=== PATIENT | male | born 1990 | race Caucasian/White ===

== ENCOUNTER 2020-11-30 12:38 | Outpatient (REF) | payer OTHER, SELFPAY ==
[2020-11-30 14:02] LABS: Hematocrit 47.7 % (42-52); Hemoglobin 16.4 g/dl (14.0-18.0); Mean Corpuscular HGB Conc 34.4 g/dl (31.0-36.0); Mean Corpuscular Hemoglobin 29.6 pg (27.0-33.0); Mean Corpuscular Volume 86.1 fL (80-98); Mean Platelet Volume 9.8 fL (9.4-12.4); Platelet Count 223 X10*3/uL (160-400); Red Blood Count 5.54 X10*6/uL (4.60-5.80)
[2020-11-30 14:39] LABS: Alanine Aminotransferase 27 U/L (0-40); Albumin Level 4.9 g/dL (3.5-5.0); Alkaline Phosphatase 67 U/L (39-117); Anion Gap 16 (12-20); Aspartate Amino Transferase 25 U/L (5-37); Bilirubin Total 0.7 mg/dL (0.0-1.0); Blood Urea Nitrogen 15 mg/dL (9-16); Calcium 9.7 mg/dL (8.4-10.2); Carbon Dioxide 26 mmol/L (22-29); Chloride 104 mmol/L (96-108); Estimated Glomerular Filt Rate > 60; Glucose Fasting 101 mg/dL (60-99); Potassium 3.8 mmol/l (3.3-5.1); Sodium 142 mmol/L (135-145); Total Protein 7.5 g/dL (6.5-8.0)
[2020-11-30 14:59] LABS: TSH reflex Free T4 1.92 mIU/mL (0.32-4.0)
== END 2020-11-30 12:39 | disposition home or self-care (01) ==
LOC: HO.10HDL 12:38
PROVIDERS: Visit Provider Physician Assistant
DX: I10 Essential (primary) hypertension (principal); R59.0 Localized enlarged lymph nodes; Z13.1 Encounter for screening for diabetes mellitus; Z13.29 Encounter for screening for other suspected endocrine disorder
CPT/HCPCS: 36415; 80053; 84443; 85027

== ENCOUNTER 2020-11-30 12:48 | Outpatient (REF) | payer OTHER, SELFPAY ==
--- NOTE | 2020-11-30 12:52 | US_ITS ---
EXAMINATION: US SOFT TISSUE OF THE NECK CLINICAL INFORMATION: Localized enlarged lymph nodes. COMPARISON: Ultrasound soft tissue head/neck thyroid and ultrasound external soft tissues nonvascular dated 12/09/2016 TECHNIQUE: Linear transducer grayscale and color Doppler examination of the left mandibular area. FINDINGS: There are 2 lymph nodes in the left submandibular region measuring 1.4 x 0.6 x 1.6 cm and 1.1 x 0.6 x 0.8 cm. These demonstrate normal ultrasound morphology and flow. US/US soft tiss head and/or neck IMPRESSION: 2 cervical lymph nodes adjacent to the left submandibular gland. The larger lymph node is slightly enlarged. Both lymph nodes demonstrate normal ultrasound morphology and flow. Management should be determined on a clinical basis.
== END 2020-11-30 12:49 | disposition home or self-care (01) ==
LOC: HO.US 12:48
PROVIDERS: PCP Physician Assistant; Visit Provider Physician Assistant
DX: R59.0 Localized enlarged lymph nodes (principal); Z13.1 Encounter for screening for diabetes mellitus; Z13.29 Encounter for screening for other suspected endocrine disorder
CPT/HCPCS: 76536

== ENCOUNTER 2021-12-17 10:42 | Outpatient (REF) | payer OTHER, SELFPAY ==
[2021-12-17 13:53] LABS: MANUAL DIFF FLAG NO
[2021-12-17 14:00] LABS: Basophils Percent Auto 0.6 % (0-2); Eosinophils Absolute Auto 0.1 X10*3/uL (0.0-0.4); Eosinophils Percent Auto 3.7 % (0-4); Hematocrit 45.5 % (42.0-52.0); Hemoglobin 15.8 g/dl (14.0-18.0); Imm Gran Abs Auto 0.01 X10*3/uL (0.00-0.03); Imm Gran Pct Auto 0.3 % (0.0-0.4); Lymphocytes Absolute Auto 1.3 X10*3/uL (1.2-4.9); Lymphocytes Percent Auto 39.6 % (20-40); Mean Corpuscular HGB Conc 34.7 g/dl (31.0-36.0); Mean Corpuscular Hemoglobin 29.8 pg (27.0-33.0); Mean Corpuscular Volume 85.7 fL (80.0-98.0); Mean Platelet Volume 9.4 fL (9.4-12.4); Monocytes Absolute Auto 0.3 X10*3/uL (0.1-1.2); Monocytes Percent Auto 9.1 % (2-11); Neutrophils Absolute Auto 1.5 x10*3/uL (2.0-8.3); Neutrophils Percent Auto 46.7 % (45-73); Platelet Count 240 X10*3/uL (160-400); Red Blood Count 5.31 X10*6/uL (4.60-5.80); Red Cell Distribution Width 11.8 % (11.0-16.0); White Blood Count 3.3 X10*3/uL (4.8-10.8)
[2021-12-17 14:23] LABS: Alanine Aminotransferase 21 U/L (0-40); Albumin Level 4.8 g/dL (3.5-5.0); Alkaline Phosphatase 70 U/L (39-117); Anion Gap 11 (12-20); Aspartate Amino Transferase 22 U/L (5-37); Bilirubin Total 0.7 mg/dL (0.0-1.0); Blood Urea Nitrogen 14 mg/dL (9-16); C Reactive Protein 0.25 mg/dL (< or = 0.50); Calcium 10.3 mg/dL (8.4-10.2); Carbon Dioxide 30 mmol/L (22-29); Chloride 103 mmol/L (96-108); Estimated Glomerular Filt Rate > 60; Glucose Random 109 mg/dL (60-115); Potassium 4.1 mmol/L (3.3-5.1); Sodium 140 mmol/L (135-145); Total Protein 7.5 g/dL (6.5-8.0)
[2021-12-17 14:36] LABS: Erythrocyte Sedimentation Rate 1 MM/HR (0-15)
[2021-12-17 14:46] LABS: TSH reflex Free T4 1.35 uIU/mL (0.32-4.0)
[2021-12-17 14:58] LABS: Folate 12.7 ng/mL (> or = 4.0); Vitamin B12 324 pg/mL (200-900)
[2021-12-19 22:01] LABS: Anti Nuclear Antibody Screen NEGATIVE (NEGATIVE)
== END 2021-12-17 10:43 | disposition home or self-care (01) ==
LOC: HO.10HDL 10:42
PROVIDERS: Visit Provider Nurse Practitioner Family
DX: Z13.29 Encounter for screening for other suspected endocrine disorder (principal); R10.9 Unspecified abdominal pain; N63.20 Unspecified lump in the left breast, unspecified quadrant
CPT/HCPCS: 36415; 80053; 82306; 82607; 82746; 84443; 85025; 85652; 86038; 86039; 86140

== ENCOUNTER 2021-12-23 08:31 | Outpatient (REF) | payer OTHER, SELFPAY ==
--- NOTE | ~2021-12-23 | MM_ITS ---
EXAMINATION: MM DIAGNOSTIC DIGITAL BREAST TOMOSYNTHESIS, BILATERAL US DIAGNOSTIC ULTRASOUND BREAST, LEFT CLINICAL INFORMATION: 31-year-old male with left retroareolar fullness. Family history breast cancer mother, paternal grandmother, paternal aunt. No prior breast imaging. COMPARISON: None (current study represents initial baseline exam). TECHNIQUE: Digital breast tomosynthesis is performed in both the craniocaudal and mediolateral oblique views along with computer-aided detection (CAD). Synthesized 2D images are generated from the tomosynthesis. Additional right MLO view is provided. Ultrasound left breast is targeted to the retroareolar and periareolar region. Grayscale imaging and color Doppler are performed without and with harmonics. FINDINGS: There are scattered areas of fibroglandular density (ACR BI-RADS breast composition Category b). There is mild bilateral subareolar gynecomastia type parenchymal pattern. There is no mass or architectural abnormality. No focal duct ectasia. No abnormal calcifications. No skin thickening or coarsening of the stromal markings. The axilla are unremarkable. Ultrasound left breast demonstrates trace gynecomastia beneath the nipple. There is no cystic or solid mass, architectural abnormality, or or focal duct ectasia. No skin thickening or edema tracking in soft tissue planes. Results are discussed with the patient at time of visit. MM/MM tomosynthesis diagnostic BI IMPRESSION: 1. Mild bilateral gynecomastia. No mammographic evidence of malignancy. 2. Unremarkable targeted left breast ultrasound. ASSESSMENT: BI-RADS 2: Benign RECOMMENDATION: Patient should be managed based on the clinical impression. If clinically indicated, further evaluation may be considered with surgical consult. Decision to proceed with biopsy should be based on clinical grounds and degree of clinical concern.
== END 2021-12-23 08:32 | disposition home or self-care (01) ==
LOC: HO.MAMMO 08:31
PROVIDERS: PCP Physician Assistant; Visit Provider Nurse Practitioner Family
DX: N63.21 Unspecified lump in the left breast, upper outer quadrant (principal)
CPT/HCPCS: 76642; 77062; 77066

== ENCOUNTER 2023-01-09 09:03 | Outpatient (REF) | payer OTHER, SELFPAY ==
[2023-01-09 11:01] LABS: Hematocrit 44.5 % (42.0-52.0); Hemoglobin 15.4 g/dl (14.0-18.0); Mean Corpuscular HGB Conc 34.6 g/dl (31.0-36.0); Mean Corpuscular Hemoglobin 30.2 pg (27.0-33.0); Mean Corpuscular Volume 87.3 fL (80.0-98.0); Mean Platelet Volume 9.5 fL (9.4-12.4); Platelet Count 246 X10*3/uL (160-400); Red Cell Distribution Width 11.9 % (11.0-16.0); White Blood Count 3.7 X10*3/uL (4.8-10.8)
[2023-01-09 11:55] LABS: Alanine Aminotransferase 29 U/L (0-40); Albumin Level 4.7 g/dL (3.5-5.0); Alkaline Phosphatase 81 U/L (39-117); Anion Gap 14 (12-20); Aspartate Amino Transferase 24 U/L (5-37); Bilirubin Total 0.4 mg/dL (0.0-1.0); Blood Urea Nitrogen 19 mg/dL (9-16); C Reactive Protein < 0.10 mg/dL (< or = 0.50); Calcium 9.8 mg/dL (8.4-10.2); Carbon Dioxide 27 mmol/L (22-29); Chloride 107 mmol/L (96-108); Estimated Glomerular Filt Rate > 60; Glucose Random 101 mg/dL (60-115); Sodium 143 mmol/L (135-145)
[2023-01-09 12:06] LABS: Folate 5.4 ng/mL (> or = 4.0); TSH reflex Free T4 1.36 uIU/mL (0.32-4.0); Vitamin B12 302 pg/mL (200-900)
[2023-01-10 13:54] LABS: Transglutaminase Ab IgG <1.0 U/mL; Transglutaminase IgA <1.0 U/mL
[2023-01-13 13:58] LABS: Vitamin D 25-OH, D2 <4 ng/mL; Vitamin D 25-OH, D3 27 ng/mL; Vitamin D 25-OH, Total 27 ng/mL (30-100)
== END 2023-01-09 09:04 | disposition home or self-care (01) ==
LOC: HO.LAB 09:03
PROVIDERS: PCP Physician Assistant; Visit Provider Nurse Practitioner Family
DX: R10.9 Unspecified abdominal pain (principal); R19.7 Diarrhea, unspecified; E55.9 Vitamin D deficiency, unspecified; K21.9 Gastro-esophageal reflux disease without esophagitis; K59.00 Constipation, unspecified; K20.90 Esophagitis, unspecified without bleeding; K58.9 Irritable bowel syndrome, unspecified; R14.0 Abdominal distension (gaseous)
CPT/HCPCS: 36415; 80053; 82306; 82607; 82746; 84443; 85027; 86003; 86140; 86364; 99202

== ENCOUNTER → 2023-03-15 08:42 | Outpatient (BNVA) | payer OTHER, SELFPAY | PROVIDERS: PCP Physician Assistant; Visit Provider Nurse Practitioner Family | DX: D72.819 Decreased white blood cell count, unspecified (principal); R14.0 Abdominal distension (gaseous); R79.89 Other specified abnormal findings of blood chemistry | CPT/HCPCS: 99212 ==

== ENCOUNTER 2023-04-21 14:46 | Outpatient (REF) | payer OTHER, SELFPAY ==
[2023-04-21 17:42] LABS: Erythrocyte Sedimentation Rate 2 MM/HR (0-15)
[2023-04-23 23:20] LABS: TS Negative Control Passed; TS Panel A 0; TS Panel B 0; TS Positive Control Passed; TSpotTB Negative (Negative)
[2023-04-24 08:23] LABS: Syphilis Screen Nonreactive (Nonreactive)
[2023-04-26 05:14] LABS: Toxoplasma IgG Antibody <7.20 IU/mL; Toxoplasma IgM Antibody <8.00 AU/mL
[2023-04-27 12:34] LABS: Immunoglobulin G Subclass 1 581 mg/dL (382-929); Immunoglobulin G Subclass 2 162 mg/dL (241-700); Immunoglobulin G Subclass 3 47 mg/dL (22-178); Immunoglobulin G Subclass 4 40.5 mg/dL (4-86); Immunoglobulin G Total 847 mg/dL (600-1640)
[2023-04-27 21:19] LABS: Strongyloides Antibody IgG NEGATIVE
[2023-04-29 02:28] LABS: Schistosoma IgG Antibody <1.00
== END 2023-04-21 14:47 | disposition home or self-care (01) ==
LOC: HO.LAB 14:46
PROVIDERS: PCP Physician Assistant; Visit Provider Internal Medicine
DX: Z11.1 Encounter for screening for respiratory tuberculosis (principal); R05.9 Cough, unspecified; D72.819 Decreased white blood cell count, unspecified; L50.8 Other urticaria; R14.0 Abdominal distension (gaseous)
CPT/HCPCS: 36415; 82784; 85652; 86403; 86481; 86682; 86777; 86778; 86780; 99202

== ENCOUNTER 2023-06-14 08:55 | Outpatient (AMB) | payer OTHER, SELFPAY ==
[2023-06-14 09:00] VITALS: BP 145/90; PULSE 79; BMI 28.3
--- NOTE | 2023-06-14 09:00 | MHC.OFFVIS ---
Intake Vital Signs 06/14/23 09:00 Height 6 ft 1 in Weight 214 lb 4.629 oz BMI 28.3 BP 145/90 H Blood Pressure Location Lt brachial Position Sitting Pulse 79 Intake Visit Reasons: 3 month follow up Intake Note: Bob presents in office as a est.patient for 3month f/u for abdominal bloating PT CC: pt reports having abdominal bloating , constipation, pt denies any other GI Issues Auricular Acupuncturist Required: No Accompanied by: Self / Same As Patient Allergies azithromycin [AZITHROMYCIN] Allergy (Unknown, Verified 06/14/23 09:01) RASH, rsh/hives levofloxacin [From LEVAQUIN] Allergy (Unknown, Verified 06/14/23 09:01) RASH Sulfa (Sulfonamide Antibiotics) [SULFA (SULFONAMIDE ANTIBIOTICS)] Allergy (Unknown, Verified 06/14/23 09:01) RASH, rash/hives Clindamycin HCl Allergy (Unknown, Uncoded 06/14/23 09:01) rash/hives HPI 3 month follow up HPI Details LAST VISIT Leukopenia Referral to Hematology Abdominal bloating Postprandial abdominal bloating. Discussed with patient again trying to incorporate food that was discussed with him last visit. Low FODMAP diet encouraged. Patient can also try elimination diet to see what is triggering him having those symptoms. I do not believe the patient is emptying completely so I will send him script for MiraLax. Possibility of gas trapping and bloating increases when he is constipated. Will send patient to check her pancreatic insufficiency. Patient denies history of pancreatitis in the past Low vitamin D level Will start patient on vitamin-D supplement. Will recheck labs in 3-4 months. I will see him in 3 months, sooner on as needed basis. Patient is agreeable to this plan and verbalizes understanding of instructions and it he was given the opportunity to ask questions and all questions answered. ? Thank you for allowing me to participate in his care Plan Orders Orders Pancreatic Elastase-1 03/15/23 R10.9 Referrals Hematology & Oncology Referral D72.819 Medications New cholecalciferol (vitamin D3) 50 mcg PO DAILY 90 caps 3RF R79.89 polyethylene glycol 3350 (Miralax) 17 grams PO DAILY 510 grams 2RF TODAY'S VISIT Patient is here today for follow-up. Patient reports that he has a healing better. Patient states that he has been avoiding dietary triggers. Notice some difference., however he continues to occasionally has loose stools and blood in his stools. Patient denies melena, unintentional weight loss or ribbon like stools. Patient denies any nausea or vomiting. Occasional postprandial abdominal bloating. Patient denies dyspepsia, dysphagia or odynophagia. Patient states that he is avoiding gluten and lactose. Patient will be traveling to [place] in [facility] next month for friend's wedding. He is questioning if he can use enzymes to help him with digestion. [facility] Medical History Fever Surgical History No pertinent past surgical history Family History Mother Breast cancer Family history of thyroid problem Father No problems noted. Social History Housing: House Alcohol intake: current Alcohol intake frequency: a few times a week Patient Tobacco Use Status: Never used Tobacco Second Hand Smoke Exposure: No Current occupational status: unemployed Cognitive needs: No Hearing needs: No Vision needs: No Review of Systems Const Denies weight gain and Denies weight loss ENT Reports no additional complaints, Denies dysphagia and Denies odynophagia Card Reports no additional complaints Resp Reports no additional complaints GI Denies abdominal pain, Denies belching, Denies melena, Reports bloating, Reports hematochezia (Occasional), Reports constipation, Denies dysphagia, Denies excessive flatus, Denies dyspepsia, Denies heartburn, Denies diarrhea, Reports loose stools (Occasional), Denies nausea, Denies odynophagia and Denies vomiting Reports no additional complaints Musc Reports no additional complaints Neuro Reports no additional complaints Psych Reports no additional complaints Endo Reports no additional complaints Physical Exam Vital Signs: Last Vital Signs Pulse 79 06/14/23 09:00 BP 145/90 H 06/14/23 09:00 BMI result Body Mass Index 28.3 Const General: healthy appearing, no acute distress and well developed Nutritional Appearance: well nourished Orientation/consciousness: patient oriented x3 HEENT Head: Yes normal to inspection, Yes normocephalic and Yes atraumatic Face and sinus: Yes normal facial exam Mouth: Normal oral and palatal mucosa present Throat: Yes posterior oropharynx normal, Yes tonsils normal and Yes uvula midline Eyes General: appearance normal, both eyes and all related structures Neck Neck: Yes normal visual inspection, Yes full ROM and Yes trachea midline Thyroid: Thyroid normal Resp Effort & Inspection: normal respiratory effort, able to speak in complete sentences, no tracheal deviation and symmetric chest movement Auscultation: clear to auscultation bilaterally Cardio Rate: regular rate Heart sounds: S1 normal heart sound present and S2 normal heart sound present GI Inspection: Yes normal to inspection, No distended and Yes obesity Palpation (GI): Soft to palpation, not firm, nontender and No hepatosplenomegaly present Auscultation: normal bowel sounds General: Yes no CVA tenderness Back/Spine/Pelvis Back: no CVA tenderness Skin General skin exam: elasticity normal, turgor normal and dry skin Neuro General: patient oriented x3 Psych Appearance: grossly normal Mental Status: mental status grossly normal Speech and movement: Normal speech and movement present Assessment & Plan Assessment & Plan (1) Abdominal bloating: Code(s): R14.0 - Abdominal distension (gaseous) Plan: Continue avoiding dietary triggers in late night snacking. Low FODMAP diet discussed with patient. Patient will purchase vegan digestive enzymes. Recommended Life extensions digestive enzymes (2) IBS (irritable bowel syndrome): Code(s): K58.9 - Irritable bowel syndrome without diarrhea Qualifiers: Irritable bowel syndrome type: with both diarrhea and constipation Qualified Code(s): K58.2 - Mixed irritable bowel syndrome Plan: Occasional loose stools postprandially. CRP and ESR negative unlikely inflammatory bowel disease, however patient will be sent for diagnostic colonoscopy. Occasional blood in his stools. Patient is encouraged to eat high-fiber diet or take fiber supplements to help him bulk stools. Patient was also encouraged to drink plenty fluids and increase activity to promote better bowel motility. (3) Encounter for diagnostic colonoscopy due to change in bowel habits: Code(s): R19.4 - Change in bowel habit Plan: On and off diarrhea occasional is blood in his stools. Patient denies having any family history of colorectal cancer. Patient denies any issues with anesthesia in the past. No history of sleep apnea. Not on any anticoagulation medication. Patient denies any cardiac or respiratory symptoms. Patient will be sent for colonoscopy I will see him after the procedure. What to expect before during and after the procedure discussed with patient. Discussed with patient the importance of good bowel prep day before the procedure as well as the importance clear liquid diet. Patient is agreeable to this plan and verbalizes understanding of instructions. He was given the opportunity to ask questions and all questions answered. Thank you for allowing me to participate in his care Medications: New bisacodyl (Dulcolax (bisacodyl)) take 2 tabs at noon the day before your colonoscopy 10 mg (2 x 5 mg) PO ONCE 1 day 2 tabs 0RF Z12.11 - Encounter for screening for malignant neoplasm of colon polyethylene glycol 3350 (Miralax) As directed by gastroenterology department at [facility] 238 grams PO ONCE 238 grams 0RF Z12.11 - Encounter for screening for malignant neoplasm of colon Coding Level of Care Code Est Pt Level 3 (44210) Diagnoses Abdominal bloating R14.0 IBS (irritable bowel syndrome) K58.2 Irritable bowel syndrome type: with both diarrhea and constipation Encounter for diagnostic colonoscopy due to change in bowel habits R19.4 Time Spent (min) 30 Comment 20 minutes spent with patient and additional 10 minutes spent reviewing his records
== END 2023-06-14 09:34 | disposition home or self-care (01) ==
PROVIDERS: PCP Physician Assistant; Visit Provider Nurse Practitioner Family
DX: R14.0 Abdominal distension (gaseous) (principal); K58.2 Mixed irritable bowel syndrome; R19.4 Change in bowel habit
CPT/HCPCS: 99213

== ENCOUNTER → 2023-06-14 08:55 | Outpatient (BNVA) | payer OTHER, SELFPAY | PROVIDERS: PCP Physician Assistant; Visit Provider Nurse Practitioner Family | DX: K58.2 Mixed irritable bowel syndrome (principal); R14.0 Abdominal distension (gaseous); R19.4 Change in bowel habit | CPT/HCPCS: 99212 ==

== ENCOUNTER 2023-07-28 07:15 | Day surgery (SDC) | payer OTHER, SELFPAY ==
[2023-07-26 15:13] VITALS: BMI 28.2
--- NOTE | 2023-07-28 07:21 | P.CONAN_ITS ---
HPI - Anesthesia Eval Consult details Narrative: for colonoscopy [facility] Active Problems Active Problems: All Active Problems (Updated 07/26/23 @ 15:12 by Rhona Resendez RN) Sinusitis (Acute) Dental abscess (Acute) Cervical adenopathy (Acute) ADHD (Acute) Globus sensation (Acute) ELIANE (generalized anxiety disorder) (Acute) Screening for diabetes mellitus (DM) (Acute) Screening for hypothyroidism (Acute) Left breast lump (Acute) Left sided abdominal pain (Acute) Screening for hypothyroidism (Acute) Low vitamin D level (Acute) Leukopenia (Acute) Gynecomastia, male (Acute) Abdominal bloating (Acute) Acute urticaria (Acute) Leucopenia (Acute) Fever (Acute) Past Medical History Medical History ADHD (attention deficit hyperactivity disorder) Fever ELIANE (generalized anxiety disorder) Leucopenia Family History Family History Mother Breast cancer Family history of thyroid problem Father No problems noted. Family history of problems with anesthesia: No Surgical History Surgical History History of nasal surgery Hx of elbow surgery History of Problems with Anesthesia: No Social History Social History Housing: House Are you a primary care administrative tech to a significant other at home: No Do you presently have visiting nurse or other home services: No Alcohol intake: current Alcohol intake frequency: holidays/special occasions only Patient Tobacco Use Status: Never used Tobacco Second Hand Smoke Exposure: No Use of substances other than those prescribed or required for medical reasons: No Are you DNR?: No Advance Directives: No Advance Directives Information Provided: Yes Advance Directives on File: No Recently lost weight without trying: No Eating poorly because of decreased appetite: No Nutrition Risks: No Nutritional Risk Poor oral hygiene: No Current occupational status: unemployed Cognitive needs: No Hearing needs: No Vision needs: No Meds Allergies Allergy/AdvReac Type Severity Reaction Status Date / Time azithromycin [AZITHROMYCIN] Allergy Intermediate RASH/hives Verified 07/26/23 15:00 clindamycin Allergy Intermediate rash/hives Verified 07/26/23 15:00 levofloxacin [From LEVAQUIN] Allergy Intermediate RASH Verified 07/26/23 15:00 Sulfa (Sulfonamide Allergy Intermediate rash/hives Verified 07/26/23 15:00 Antibiotics) [SULFA (SULFONAMIDE ANTIBIOTICS)] Exam Exam Date and Time: July 28, 2023 0721 Height,Weight and Vital Signs: Height 6 ft 1 in Weight 97.069 kg Airway Mallampati Class: II TM Dist: >3cm Neck ROM: Full Heart: rrr Lungs: cta Assessment and Plan Assessment Anesthesia Assessment: Anesthesia Plan Discussed and Chart Reviewed Final Anesthetic Review Family History of Problems with Anesthesia: No History of Problems with Anesthesia: No NPO: Yes ASA Class: II Final Preanesthetic Review: No Changes in Pt Med Stat, Meds/Allgs Chart Reviewed, Consent Obtained/Reviewed and Anes Risks/Benef Reviewed Patient Risk: Low Procedure Risk: Low Anesthetic Plan Anesthetic Plan: MAC: Disposition: Standard PACU
[2023-07-28 07:33] VITALS: BP 150/95; PULSE 103; RESP 16; TEMP 36.2; O2SAT 100
--- NOTE | 2023-07-28 08:11 | MHC.SHP ---
Pre-Procedural Eval Section A Date of Service: 07/28/23 The patient is an INPATIENT: No The History & Physical has been completed within 30 days and I have reviewed it.: No Section B Chief Complaint: abdominal bloating, loose stools with rectal blood Relevant Family History (Specify if Yes): No Relevant Social History: None Present Medications: see Short Stay Collaborative assessment Medical History: Significant History (ADHD, ELIANE) History of Previous Operations: Relevant previous surgery/procedure and date(s) (History of elbow surgery, history of nasal surgery) Allergies: Allergies Allergy/AdvReac Type Severity Reaction Status Date / Time azithromycin [AZITHROMYCIN] Allergy Intermediate RASH/hives Verified 07/28/23 07:29 clindamycin Allergy Intermediate rash/hives Verified 07/28/23 07:29 levofloxacin [From LEVAQUIN] Allergy Intermediate RASH Verified 07/28/23 07:29 peanut Allergy Intermediate swollen Verified 07/28/23 07:31 lymph nodes scallops Allergy Intermediate swollen Verified 07/28/23 07:31 lymph nodes sesame seed Allergy Intermediate swollen Verified 07/28/23 07:31 lymph nodes Sulfa (Sulfonamide Allergy Intermediate rash/hives Verified 07/28/23 07:29 Antibiotics) [SULFA (SULFONAMIDE ANTIBIOTICS)] wheat Allergy Intermediate swollen Verified 07/28/23 07:31 lymph nodes Review of Systems Sugical H&P ROS: Negative: Constitution, Cardiovascular and Respiratory and Yes, Specify: Gastrointestinal (diarrhea, constipation, rectal bleeding) Exam Surgical H&P Exam: Normal: Heart, Normal: Lungs, Normal: Extremities and Normal: Abdomen Plan Diagnosis/Plan: Unchanged I have reviewed the history and physical and performed a pertinent physical examination on my patient. No changes have occurred unless specified. Time Spent With Patient Time: Total time managing care of this patient today ____ minutes.
--- NOTE | 2023-07-28 08:34 | P.OP_ITS ---
Operative Note Operative Note Date of Service: 07/28/23 Narrative: COLONOSCOPY TILL CECUM WITH BIOPSIES Pre-op diagnosis: Diarrhea, constipation, rectal bleeding, abdominal bloating Post-op diagnosis:? Diverticulosis, hemorrhoids Endoscopist:? Joie Barnett MD Anesthesia:?MAC Consent: Indications for the procedure and potential complications of bleeding, perforation, reaction to medications and missed diagnosis were discussed with the patient and informed consent was obtained. Instrument: Olympus PCF H 190 L variable stiffness pediatric colonoscope Monitoring: Vital signs and clinical assessment, intermittent blood pressure monitoring, continuous EKG monitoring, Pulse oximetry and Carbon Dioxide monitoring were done throughout the procedure. Please see anesthesia flowsheet. Colon withdrawl time was 12 minutes. Procedure: The patient was placed in the left lateral decubitis position and pre-procedure medications were administered. After a digital rectal examination of the ano-rectum, the video colonoscope was inserted into the rectum and advanced through the colon to the cecum. The colonoscope was slowly withdrawn in a retrograde panoramic fashion and the colon mucosa was carefully examined including a retroflexed view of the rectum. Findings and interventions are described below. Procedure Difficulty: Without difficulty Findings: Terminal Ileum: Distal 4-5 cms was examined and appeared normal Cecum: Focal area of aphthoid ulcers around the appendicular orifice - biopsies obtained Ascending Colon: Normal Transverse Colon: Normal Descending Colon: Normal Sigmoid Colon: Mild diverticulosis Rectum: Normal Ano-rectum: Moderate internal hemorrhoids Colon preparation: Excellent Impression and Post Procedure Diagnosis: Colonoscopy Findings: No polyps were detected Focal area of aphthoid ulcers around the appendicular orifice - biopsies obtained Random biopsies were obtained from the right and left colon to check for IBD/microscopic colitis Mild diverticulosis seen in the sigmoid colon Moderate hemorrhoids on retroflexed exam - likely source for rectal bleeding. Plan: Await pathology results Patient has an appointment on 08/11/23 in the GI Clinic with Tina Flannery FNP- [facility]. Repeat Colonoscopy interval based on path results - in 12 years if biopsies are normal. Hemorrhoids and diverticulosis handouts were given in the discharge area
[2023-07-28] MEDS: Lactated Ringers 1,000 ML 50 ML IVCONT (08:37)
[2023-07-28 09:15] VITALS: BP 102/52; PULSE 74; RESP 12; TEMP 36.6; O2SAT 98
[2023-07-28 09:30] VITALS: BP 100/57; PULSE 86; RESP 16; O2SAT 99
== END 2023-07-28 10:00 | disposition home or self-care (01) ==
PROVIDERS: PCP Physician Assistant; Visit Provider Internal Medicine Gastroenterology
PROC: 0DJD8ZZ Inspection of Lower Intestinal Tract, Via Natural or Artificial Opening Endoscopic (ICD-10-PCS; CPT 45378; principal; 2023-07-28 08:30)
DX: K57.30 Diverticulosis of large intestine without perforation or abscess without bleeding (principal); K64.8 Other hemorrhoids; K52.89 Other specified noninfective gastroenteritis and colitis; R14.0 Abdominal distension (gaseous); K58.2 Mixed irritable bowel syndrome; Z79.899 Other long term (current) drug therapy
CPT/HCPCS: 45380; 88305; J2250

== ENCOUNTER → 2023-07-28 07:15 | Outpatient (BNV) | payer OTHER, SELFPAY | PROVIDERS: PCP Physician Assistant; Visit Provider Internal Medicine Gastroenterology | DX: R19.4 Change in bowel habit (principal); R14.0 Abdominal distension (gaseous); K62.5 Hemorrhage of anus and rectum; K57.30 Diverticulosis of large intestine without perforation or abscess without bleeding; K64.8 Other hemorrhoids | CPT/HCPCS: 45380 ==

== ENCOUNTER 2023-08-11 08:28 | Outpatient (AMB) | payer OTHER, SELFPAY ==
--- NOTE | 2023-08-11 08:32 | A.OFFVIS_ITS ---
Intake Vital Signs 08/11/23 08:35 Height 6 ft 1 in Weight 210 lb BMI 27.7 BP 136/75 Blood Pressure Location Lt brachial Position Sitting Pulse 85 Intake Visit Reasons: s/p colon -Anibal Intake Note: Bob presents in the office as a follow up colonoscopy results. CC: No concerns since his procedure - just here for the results. 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 Allergies azithromycin [AZITHROMYCIN] Allergy (Intermediate, Verified 08/11/23 08:36) RASH/hives clindamycin Allergy (Intermediate, Verified 08/11/23 08:36) rash/hives levofloxacin [From LEVAQUIN] Allergy (Intermediate, Verified 08/11/23 08:36) RASH peanut Allergy (Intermediate, Verified 08/11/23 08:36) swollen lymph nodes scallops Allergy (Intermediate, Verified 08/11/23 08:36) swollen lymph nodes sesame seed Allergy (Intermediate, Verified 08/11/23 08:36) swollen lymph nodes Sulfa (Sulfonamide Antibiotics) [SULFA (SULFONAMIDE ANTIBIOTICS)] Allergy (Intermediate, Verified 08/11/23 08:36) rash/hives wheat Allergy (Intermediate, Verified 08/11/23 08:36) swollen lymph nodes HPI s/p colon -Anibal HPI Details LAST VISIT: Abdominal bloating Continue avoiding dietary triggers in late night snacking. Low FODMAP diet discussed with patient. Patient will purchase vegan digestive enzymes. Recommended Life extensions digestive enzymes IBS (irritable bowel syndrome) Occasional loose stools postprandially. CRP and ESR negative unlikely inflammatory bowel disease, however patient will be sent for diagnostic colonoscopy. Occasional blood in his stools. Patient is encouraged to eat high- fiber diet or take fiber supplements to help him bulk stools. Patient was also encouraged to drink plenty fluids and increase activity to promote better bowel motility. Encounter for diagnostic colonoscopy due to change in bowel habits On and off diarrhea occasional is blood in his stools. Patient denies having any family history of colorectal cancer. Patient denies any issues with anesthesia in the past. No history of sleep apnea. Not on any anticoagulation medication. Patient denies any cardiac or respiratory symptoms. Patient will be sent for colonoscopy I will see him after the procedure. What to expect before during and after the procedure discussed with patient. Discussed with patient the importance of good bowel prep day before the procedure as well as the importance clear liquid diet. Patient is agreeable to this plan and verbalizes understanding of instructions. He was given the opportunity to ask questions and all questions answered. COLONOSCOPY: Findings: Terminal Ileum: Distal 4-5 cms was examined and appeared normal Cecum: Focal area of aphthoid ulcers around the appendicular orifice - biopsies obtained Ascending Colon: Normal Transverse Colon: Normal Descending Colon: Normal Sigmoid Colon: Mild diverticulosis Rectum: Normal Ano-rectum: Moderate internal hemorrhoids Colon preparation: Excellent Impression and Post Procedure Diagnosis: Colonoscopy Findings: No polyps were detected Focal area of aphthoid ulcers around the appendicular orifice - biopsies obtained Random biopsies were obtained from the right and left colon to check for IBD/microscopic colitis Mild diverticulosis seen in the sigmoid colon Moderate hemorrhoids on retroflexed exam - likely source for rectal bleeding. Plan: Repeat Colonoscopy interval based on path results - in 12 years if biopsies are normal. PATHOLOGY RESULTS Diagnosis A. Colon, cecum, biopsy: Active colitis with mild activity (see comment). B. Colon, right, biopsy: Active colitis with mild activity (see comment). C. Colon, left, biopsy: Colonic mucosa within normal limits; negative for active, chronic or microscopic colitis. COMMENT (A&B): Neither chronic mucosal injury nor granulomas are identified. The differential diagnosis includes infection, drug/medication effect and early idiopathic inflammatory bowel disease. TODAY'S VISIT Patient is here today for follow-up and to discuss colonoscopy results. Patient reports that he has had feeling much better since the last time I has seen him. Patient is following low FODMAP diet. Avoiding dietary triggers. Patient is moving his bowels better now. He used to have been very constipated. Patient denies any diarrhea. Reports that he is taking MiraLax every morning and he is moving his bowels better. Patient denies melena, hematochezia, unintentional weight loss or ribbon like stools. Patient denies any dyspepsia, dysphagia or odynophagia. [facility] Medical History Leucopenia ELIANE (generalized anxiety disorder) ADHD (attention deficit hyperactivity disorder) Fever Surgical History Hx of colonoscopy History of nasal surgery Hx of elbow surgery Family History Mother Breast cancer Family history of thyroid problem Father No problems noted. Social History Housing: House Are you a primary toddler caregiver to a significant other at home: No Do you presently have visiting nurse or other home services: No Alcohol intake: current Alcohol intake frequency: holidays/special occasions only Patient Tobacco Use Status: Never used Tobacco Second Hand Smoke Exposure: No Current occupational status: unemployed Cognitive needs: No Hearing needs: No Vision needs: No Review of Systems Const Denies weight gain and Denies weight loss ENT Reports no additional complaints, Denies dysphagia and Denies odynophagia Card Reports no additional complaints Resp Reports no additional complaints GI Denies abdominal pain, Denies belching, Denies melena, Denies bloating, Denies change in bowel habits, Denies dysphagia, Denies excessive flatus, Denies dyspepsia, Denies heartburn, Denies diarrhea, Denies loose stools, Denies nausea, Denies odynophagia and Denies vomiting Reports no additional complaints Musc Reports no additional complaints Neuro Reports no additional complaints Psych Reports no additional complaints Endo Reports no additional complaints Physical Exam Vital Signs: Last Vital Signs Pulse 85 08/11/23 08:35 BP 136/75 08/11/23 08:35 BMI result Body Mass Index 27.7 Const General: healthy appearing, no acute distress and well developed Nutritional Appearance: well nourished Orientation/consciousness: patient oriented x3 HEENT Head: Yes normal to inspection, Yes normocephalic and Yes atraumatic Face and sinus: Yes normal facial exam Mouth: Normal oral and palatal mucosa present Throat: Yes posterior oropharynx normal, Yes tonsils normal and Yes uvula midline Eyes General: appearance normal, both eyes and all related structures Neck Neck: Yes normal visual inspection, Yes full ROM and Yes trachea midline Thyroid: Thyroid normal Resp Effort & Inspection: normal respiratory effort, able to speak in complete sentences, no tracheal deviation and symmetric chest movement Auscultation: clear to auscultation bilaterally Cardio Rate: regular rate Heart sounds: S1 normal heart sound present and S2 normal heart sound present GI Inspection: Yes normal to inspection and No distended Palpation (GI): Soft to palpation, not firm, nontender and No hepatosplenomegaly present Auscultation: normal bowel sounds General: Yes no CVA tenderness Back/Spine/Pelvis Back: no CVA tenderness Skin General skin exam: elasticity normal, turgor normal and dry skin Neuro General: patient oriented x3 Psych Appearance: grossly normal Mental Status: mental status grossly normal Speech and movement: Normal speech and movement present Assessment & Plan Assessment & Plan (1) Left sided abdominal pain: Code(s): R10.9 - Unspecified abdominal pain Plan: Patient reports that he is feeling much better no abdominal pain or discomfort. Active colitis seen on colonoscopy, however patient does not have any symptoms. Negative CRP, history of constipation, now moving his bowels better. No family history of IBD. (2) Status post colonoscopy: Code(s): Z98.890 - Other specified postprocedural states Plan: Patient denies any ill effects from the prep, anesthesia or procedure itself. Reports to be feeling well. Next colonoscopy will be went patient will turn 44 on last patient will have change in his bowel pattern or any other clinical indications. I will see patient in 6 months, sooner on as needed basis. Patient is agreeable to this plan and verbalizes understanding of instructions. He was given the opportunity to ask questions and all questions answered. Thank you for allowing me to participate in his care Coding Level of Care Code Est Pt Level 4 (95931) Diagnoses Left sided abdominal pain R10.9 Status post colonoscopy Z98.890 Time Spent (min) 35 Comment 20 minutes spent with patient and additional 15 minutes spent reviewing his records
[2023-08-11 08:35] VITALS: BP 136/75; PULSE 85; BMI 27.7
== END 2023-08-11 09:03 | disposition home or self-care (01) ==
PROVIDERS: PCP Physician Assistant; Visit Provider Nurse Practitioner Family
DX: R10.9 Unspecified abdominal pain (principal); Z98.890 Other specified postprocedural states
CPT/HCPCS: 99214

== ENCOUNTER → 2023-08-11 08:28 | Outpatient (BNVA) | payer OTHER, SELFPAY | PROVIDERS: PCP Physician Assistant; Visit Provider Nurse Practitioner Family | DX: K52.9 Noninfective gastroenteritis and colitis, unspecified (principal); K57.30 Diverticulosis of large intestine without perforation or abscess without bleeding; K64.8 Other hemorrhoids; Z98.890 Other specified postprocedural states | CPT/HCPCS: 99212 ==

== ENCOUNTER 2023-09-21 11:40 | Outpatient (AMB) | payer OTHER, SELFPAY ==
[2023-09-21 11:44] VITALS: BP 124/90; PULSE 80; O2SAT 100; BMI 28.4
--- NOTE | 2023-09-21 11:44 | A.OFFPC_ITS ---
Vital Signs 09/21/23 11:44 Height 6 ft 1 in Weight 215 lb 0.7 oz BMI 28.4 BP 124/90 H Blood Pressure Location Lt brachial Position Sitting Pulse 80 Pulse Source Pulse Oximeter Pulse Oximetry (%) 100 Oxygen Delivery Method Room Air Intake Visit Reasons: Med review Intake Worker Required: No Allergies azithromycin [AZITHROMYCIN] Allergy (Intermediate, Verified 09/21/23 11:54) RASH/hives clindamycin Allergy (Intermediate, Verified 09/21/23 11:54) rash/hives levofloxacin [From LEVAQUIN] Allergy (Intermediate, Verified 09/21/23 11:54) RASH peanut Allergy (Intermediate, Verified 09/21/23 11:54) swollen lymph nodes scallops Allergy (Intermediate, Verified 09/21/23 11:54) swollen lymph nodes sesame seed Allergy (Intermediate, Verified 09/21/23 11:54) swollen lymph nodes Sulfa (Sulfonamide Antibiotics) [SULFA (SULFONAMIDE ANTIBIOTICS)] Allergy (Intermediate, Verified 09/21/23 11:54) rash/hives wheat Allergy (Intermediate, Verified 09/21/23 11:54) swollen lymph nodes Medication List - Last Reconciled 09/21/23 by VERA Valerio cholecalciferol (vitamin D3) 50 mcg PO DAILY dextroamphetamine-amphetamine 10 mg (Adderall) 10 mg PO BID 28 days lorazepam 0.5 mg PO DAILY PRN 14 days Tobacco use date assessed: 09/21/23 [facility] Med review HPI Details Patient is a 33-year-old male who presents today to follow-up on medications. Medical history significant for ADHD anxiety among others. Patient reports that he is compliant with medications and denies side effects. Adderall helps him to stay on task and he needs refill for this. Denies shortness of breath or chest pain. Reports drinking alcohol only on weekend, does not need help with alcohol cessation. [facility] Medical History Leucopenia ELIANE (generalized anxiety disorder) ADHD (attention deficit hyperactivity disorder) Fever Surgical History Hx of colonoscopy History of nasal surgery Hx of elbow surgery Family History Mother Breast cancer Family history of thyroid problem Father No problems noted. Social History Housing: House Are you a primary adult live in caregiver to a significant other at home: No Do you presently have visiting nurse or other home services: No Alcohol intake: current Alcohol intake frequency: holidays/special occasions only Patient Tobacco Use Status: Never used Tobacco Second Hand Smoke Exposure: No Current occupational status: unemployed Cognitive needs: No Hearing needs: No Vision needs: No Questionnaire Thrive Questionnaire Date Thrive assessed: 01/06/23 AUDIT C Alcohol Use Questionnaire (AUDIT-C) 1. How often do you have a drink containing alcohol?: 2-3 times a week 2. How many drinks containing alcohol do you have on a typical day when you are drinking?: 1 or 2 3. How often do you have six or more drinks on one occasion?: Never Total Score: 3 Score Reviewed/Action Taken: Yes ELIANE-7 AMB Questionnaire ELIANE-7 Date ELIANE - 7 assessed: 01/06/23 Source: Developed by Drs. Barrie Callahan, Laurel Wilhelm, Arben Mallory and colleagues, with an educational nelson from [employer] Review of Systems Const Denies body aches, Denies chills, Denies fever(s) and Denies headache(s) ENT Denies dizziness, Denies otalgia, Denies headache(s), Denies nasal discharge, Denies sinus pain and Denies sore throat Card Denies chest pain, Denies edema, Denies lightheadedness and Denies dyspnea Resp Denies cough, Denies dyspnea and Denies wheezing GI Denies abdominal pain Denies dysuria Musc Denies myalgias Skin/Breast Denies rash Neuro Denies dizziness and Denies headache(s) Aller/Immun Denies wheezing Physical exam (Primary Care) Vital Signs: Last Vital Signs Pulse 80 09/21/23 11:44 BP 124/90 H 09/21/23 11:44 Pulse Ox 100 09/21/23 11:44 Oxygen Delivery Method Room Air 09/21/23 11:44 BMI result Body Mass Index 28.4 Tobacco/Smoking Status: Tobacco use Status Tobacco use date assessed 09/21/23 09/21/23 11:47 Patient Tobacco Use Status Never used Tobacco 09/21/23 11:47 Thrive Assessment: Date of Thrive Assessment Date Thrive assessed 01/06/23 09/21/23 11:47 Const General: cooperative and no acute distress Orientation/consciousness: patient oriented x3 HENMT Head: Yes normocephalic and Yes atraumatic Mouth: oropharynx normal and moist mucous membranes Throat: Yes posterior oropharynx normal Eyes General: appearance normal, both eyes and all related structures Neck Neck: Yes normal visual inspection, Yes full ROM and Yes no lymphadenopathy Resp Effort & Inspection: normal respiratory effort and able to speak in complete sentences Auscultation: clear to auscultation bilaterally, no crackles, no rales, no rhonchi and no wheezes Cardio Rate: regular rate Rhythm: regular rhythm Heart sounds: S1 normal heart sound present and S2 normal heart sound present GI Auscultation: normal bowel sounds Skin General skin exam: no rashes or lesions noted Neuro General: patient oriented x3 Gait exam (Neuro): Normal gait present Extrem General: Yes full ROM Assessment and Plan Assessment & Plan (1) ELIANE (generalized anxiety disorder): Code(s): F41.1 - Generalized anxiety disorder Plan: Stable with Ativan daily p.r.n.-educated about dependency and memory loss, patient reports he does not take Ativan every day (2) ADHD: Code(s): F90.9 - Attention-deficit hyperactivity disorder, unspecified type Qualifiers: Attention deficit-hyperactivity disorder type: predominantly inattentive Qualified Code(s): F90.0 - Attention-deficit hyperactivity disorder, predominantly inattentive type Plan: Stable with Adderall Plan Follow-up with PCP in 3 months or sooner as needed Medications: Refilled dextroamphetamine-amphetamine 10 mg (Adderall) 10 mg PO BID 28 days 56 tabs 0RF F90.9 - Attention-deficit hyperactivity disorder, unspecified type Coding Level of Care Code Est Pt Level 4 (37685) Diagnoses ELIANE (generalized anxiety disorder) 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
== END 2023-09-21 12:02 | disposition home or self-care (01) ==
PROVIDERS: PCP Physician Assistant; Visit Provider Nurse Practitioner Family
DX: F41.1 Generalized anxiety disorder (principal); F90.0 Attention-deficit hyperactivity disorder, predominantly inattentive type
CPT/HCPCS: 99214

== ENCOUNTER 2023-12-18 11:17 | Outpatient (AMB) | payer OTHER, SELFPAY ==
[2023-12-18 11:24] VITALS: BP 120/72; PULSE 78; O2SAT 98; BMI 29.2
--- NOTE | 2023-12-18 11:24 | A.OFFPC_ITS ---
Vital Signs 12/18/23 11:24 Height 6 ft 1 in Weight 221 lb BMI 29.2 BP 120/72 Blood Pressure Location Lt brachial Position Sitting Pulse 78 Pulse Source Pulse Oximeter Pulse Oximetry (%) 98 Oxygen Delivery Method Room Air Intake Visit Reasons: ADHD Intake Note: Patient is here to follow up on ADHD. Home Economist Required: No Accompanied by: Self / Same As Patient Allergies azithromycin [AZITHROMYCIN] Allergy (Intermediate, Verified 12/18/23 11:49) RASH/hives clindamycin Allergy (Intermediate, Verified 12/18/23 11:49) rash/hives levofloxacin [From LEVAQUIN] Allergy (Intermediate, Verified 12/18/23 11:49) RASH peanut Allergy (Intermediate, Verified 12/18/23 11:49) swollen lymph nodes scallops Allergy (Intermediate, Verified 12/18/23 11:49) swollen lymph nodes sesame seed Allergy (Intermediate, Verified 12/18/23 11:49) swollen lymph nodes Sulfa (Sulfonamide Antibiotics) [SULFA (SULFONAMIDE ANTIBIOTICS)] Allergy (Intermediate, Verified 12/18/23 11:49) rash/hives wheat Allergy (Intermediate, Verified 12/18/23 11:49) swollen lymph nodes Medication List - Last Reconciled 12/18/23 by Amauri Ma PA-C cholecalciferol (vitamin D3) 50 mcg PO DAILY dextroamphetamine-amphetamine 10 mg (Adderall) 10 mg PO BID 28 days lorazepam 0.5 mg PO DAILY PRN 14 days Tobacco use date assessed: 12/18/23 Dental Screening Dental Screen Date: 12/18/23 Did you have a dental visit in the last 12 months?: Yes Did you have a dental problem in the last 6 months where you did not have access to dental care?: No Was dental information given to patient?: Patient has dentist HPI ADHD HPI Details Patient is a 33-year-old male here today for ADHD follow-up visit. Patient continues with Adderall 10 mg b.i.d. his ADHD symptoms which have been well controlled with medication. .. Has seen a gastro for his GI symptoms, colonoscopy has been done, found out he has a few food allergies and is gluten intolerant. Has been making dietary modifications and GI symptoms have been much improved. [facility] Medical History Leucopenia ELIANE (generalized anxiety disorder) ADHD (attention deficit hyperactivity disorder) Fever Surgical History Hx of colonoscopy History of nasal surgery Hx of elbow surgery Family History Mother Breast cancer Family history of thyroid problem Father No problems noted. Social History Housing: House Are you a primary medicare insurance specialist to a significant other at home: No Do you presently have visiting nurse or other home services: No Alcohol intake: current Alcohol intake frequency: holidays/special occasions only Patient Tobacco Use Status: Never used Tobacco e-Cigarette/Vaping Use: Never Used Second Hand Smoke Exposure: No Current occupational status: unemployed Cognitive needs: No Hearing needs: No Vision needs: No Questionnaire PHQ-9 Over the last 2 weeks, how often have you been bothered by any of the following problems? 1. Little interest or pleasure in doing things: not at all 2. Feeling down, depressed, or hopeless: not at all 3. Trouble falling or staying asleep, or sleeping too much: not at all 4. Feeling tired or having little energy: not at all 5. Poor appetite or overeating: not at all 6. Feeling bad about yourself - or that you are a failure or have let yourself or your family down: not at all 7. Trouble concentrating on things, such as reading the newspaper or watching television: not at all 8. Moving or speaking so slowly that other people could have noticed. Or the opposite - being so fidgety or restless that you have been moving around a lot more than usual: not at all 9. Thoughts that you would be better off or of hurting yourself in some way: not at all Total score: 0 Depression Screening Interpretation: Negative Depression Screening Done: Yes 96753 - PHQ-9 Billing: Yes Source: Developed by Drs. Barrie Callahan, Laurel Wilhelm, Arben Mallory and colleagues, with an educational nelson from [employer]. Thrive Questionnaire Date Thrive assessed: 12/18/23 I am a: Patient What is your living situation today?: I have a steady place to live Within the past 12 months, did the food you bought not last and you didn't have the money to get more?: Never true Within the past 12 months, did you worry whether your food would run out before you got money to buy more?: Never true Do you have trouble paying for medicines?: No Do you have trouble getting transportation to medical appointments?: No Do you have trouble paying your heating and electricity bill?: No Do you have trouble with day-to-day activities such as bathing, preparing meals, shopping, managing finances, etc.?: No Are you currently unemployed and looking for a job?: I choose not to answer this question Are you interested in more education?: No Please select the resources that you would like help with: None Currently or been in a relationship where the following occur: no concerns reported THRIVE Score: 0 AUDIT C Alcohol Use Questionnaire (AUDIT-C) 1. How often do you have a drink containing alcohol?: Monthly or less 2. How many drinks containing alcohol do you have on a typical day when you are drinking?: 1 or 2 3. How often do you have six or more drinks on one occasion?: Never Total Score: 1 EILANE-7 AMB Questionnaire ELIANE-7 Date ELIANE - 7 assessed: 12/18/23 Feeling nervous, anxious, or on edge: 0 = Not at all Not being able to stop or control worryin = Not at all Worrying too much about different things: 0 = Not at all Trouble relaxin = Not at all Being so restless that it is hard to sit still: 0 = Not at all Becoming easily annoyed or irritable: 0 = Not at all Feeling afraid as if something awful might happen: 0 = Not at all Total ELIANE-7 score (0-4 normal; 5-9 mild; 10-14 moderate; 15-21 severe): 0 Source: Developed by Drs. Barrie Callahan, Laurel Wilhelm, Arben Mallory and colleagues, with an educational nelson from [employer]. ELIANE-7 Assessment Billing ELIANE-7 Assessment Tool: ELIANE-7 Assessment 68263 Review of Systems Const Denies headache(s) Eyes Denies loss of vision ENT Denies vertigo, Denies dizziness, Denies headache(s) and Denies sore throat Card Denies chest pain, Denies leg edema and Denies lightheadedness Resp Denies cough, Denies hemoptysis and Denies wheezing GI Denies abdominal pain, Denies melena, Denies constipation, Denies diarrhea and Denies vomiting Denies dysuria, Denies urinary frequency and Denies urinary urgency Musc Denies arthralgias, Denies joint swelling, Denies numbness and Denies tingling Neuro Denies Abnormal speech present, Denies behavioral changes, Denies vertigo, Denies dizziness, Denies headache(s), Denies loss of vision, Denies memory loss, Denies numbness and Denies tingling Psych Denies anxiety, Denies behavioral changes, Denies depression, Denies memory loss and Denies panic attacks Best/Lymph Denies easy bleeding and Denies easy bruising Aller/Immun Denies wheezing Physical exam (Primary Care) Vital Signs: Last Vital Signs Pulse 78 12/18/23 11:24 BP 120/72 12/18/23 11:24 Pulse Ox 98 12/18/23 11:24 Oxygen Delivery Method Room Air 12/18/23 11:24 BMI result Body Mass Index 29.2 Tobacco/Smoking Status: Tobacco use Status Tobacco use date assessed 12/18/23 12/18/23 11:29 Patient Tobacco Use Status Never used Tobacco 12/18/23 11:29 e-Cigarette/Vaping Use Never Used 12/18/23 11:29 PHQ-9: PHQ-9 Score PHQ-9: Total score 0 12/18/23 11:29 Depression Screening Interpretation: Negative Thrive Assessment: Date of Thrive Assessment Date Thrive assessed 12/18/23 12/18/23 11:29 Currently or been in a relationship where the following occur: no concerns reported Const General: healthy appearing, no acute distress, alert and awake Nutritional Appearance: well nourished Orientation/consciousness: oriented to person, oriented to place and oriented to time HENMT Ears: TM's normal bilaterally General nose exam: Normal nasal mucous membranes and turbinates present Eyes Conjunctivae: conjunctivae normal Sclerae: sclerae normal Pupils: Equal, round and reactive pupils present Neck Neck: Yes no lymphadenopathy and Yes no JVD Thyroid: Thyroid normal Carotids: no bruits Resp Effort & Inspection: normal respiratory effort and not tachypneic Auscultation: no crackles, no rales, no rhonchi and no wheezes Cardio Rate: regular rate Rhythm: regular rhythm Heart sounds: no murmurs and normal S1 and S2 GI Palpation (GI): Soft to palpation, nontender, no hepatomegaly and no splenomegaly Auscultation: normal bowel sounds Skin General skin exam: no rashes or lesions noted and dry skin Neuro General: oriented to person, oriented to place and oriented to time Cranial nerves: Yes Equal, round and reactive pupils present Speech: No Abnormal speech present Gait exam (Neuro): Normal gait present Motor exam (neuro): no tremor noted Extrem Right upper extremity: full ROM Left upper extremity: full ROM Right lower extremity: full ROM; no edema Left lower extremity: full ROM; no edema Psych Mental Status: mental status grossly normal Speech and movement: Normal speech and movement present Affect: normal affect Attitude: cooperative Thought process: Normal thought process present Assessment and Plan Assessment & Plan (1) ELIANE (generalized anxiety disorder): Code(s): F41.1 - Generalized anxiety disorder Plan: Patient's ELIANE-7 score 0. Has a history of generalized anxiety disorder. Stable with Ativan daily p.r.n.-educated about dependency and memory loss, patient reports he does not take Ativan every day (2) ADHD: Code(s): F90.9 - Attention-deficit hyperactivity disorder, unspecified type Qualifiers: Attention deficit-hyperactivity disorder type: predominantly inattentive Qualified Code(s): F90.0 - Attention-deficit hyperactivity disorder, predominantly inattentive type Plan: Stable with Adderall. Originally prescribed by psychiatrist. He is doing well working full-time. Continue to follow-up (3) Abdominal bloating: Code(s): R14.0 - Abdominal distension (gaseous) Plan: Has been better since diet modifications. (4) Leucopenia: Code(s): D72.819 - Decreased white blood cell count, unspecified Qualifiers: Leukopenia type: neutropenia Neutropenia type: unspecified Qualified Code(s): D70.9 - Neutropenia, unspecified Plan: Has seen Hematology, will continue to follow CBC. Orders: Orders Comprehensive [place]. Panel Fast Today Z13.1 - Encounter for screening for belai betes mellitus Complete Blood Count no Diff Today D72.819 - Decreased white blood cell count, unspecified Coding Level of Care Code Est Pt Level 3 (33572) Diagnoses ELIANE (generalized anxiety disorder) 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 Abdominal bloating R14.0 Neutropenia, unspecified type D70.9 Leukopenia type: neutropenia Neutropenia type: unspecified Additional Codes ELIANE-7 Assessment Billing - ELIANE-7 Assessment Tool: ELIANE-7 Assessment 99327 ([id number])
== END 2023-12-18 12:01 | disposition home or self-care (01) ==
PROVIDERS: PCP Physician Assistant; Visit Provider Physician Assistant
DX: R14.0 Abdominal distension (gaseous) (principal); D70.9 Neutropenia, unspecified; F41.1 Generalized anxiety disorder; F90.0 Attention-deficit hyperactivity disorder, predominantly inattentive type
CPT/HCPCS: 99213

== ENCOUNTER 2024-02-07 07:57 | Outpatient (AMB) | payer OTHER, SELFPAY ==
[2024-02-07 07:58] VITALS: BP 138/87; PULSE 82; BMI 28.2
--- NOTE | 2024-02-07 07:58 | MHC.OFFVIS ---
Intake Vital Signs 02/07/24 07:58 Height 6 ft 1 in Weight 213 lb 13.574 oz BMI 28.2 BP 138/87 Blood Pressure Location Lt brachial Position Sitting Pulse 82 Pulse Source Pulse Oximeter Intake Visit Reasons: 6 month follow up Intake Note: Pt presents to the office today for a 6 month follow up. He states he doesn't have anymore abdominal pain. Pt denies any other GI concerns at this time. Allergies azithromycin [AZITHROMYCIN] Allergy (Intermediate, Verified 02/07/24 08:00) RASH/hives clindamycin Allergy (Intermediate, Verified 02/07/24 08:00) rash/hives levofloxacin [From LEVAQUIN] Allergy (Intermediate, Verified 02/07/24 08:00) RASH peanut Allergy (Intermediate, Verified 02/07/24 08:00) swollen lymph nodes scallops Allergy (Intermediate, Verified 02/07/24 08:00) swollen lymph nodes sesame seed Allergy (Intermediate, Verified 02/07/24 08:00) swollen lymph nodes Sulfa (Sulfonamide Antibiotics) [SULFA (SULFONAMIDE ANTIBIOTICS)] Allergy (Intermediate, Verified 02/07/24 08:00) rash/hives wheat Allergy (Intermediate, Verified 02/07/24 08:00) swollen lymph nodes HPI 6 month follow up HPI Details LAST VISIT Left sided abdominal pain Patient reports that he is feeling much better no abdominal pain or discomfort. Active colitis seen on colonoscopy, however patient does not have any symptoms. Negative CRP, history of constipation, now moving his bowels better. No family history of IBD. Status post colonoscopy Patient denies any ill effects from the prep, anesthesia or procedure itself. Reports to be feeling well. Next colonoscopy will be when patient will turn 44 or if patient will have change in his bowel pattern or any other clinical indications. I will see patient in 6 months, sooner on as needed basis. Patient is agreeable to this plan and verbalizes understanding of instructions. He was given the opportunity to ask questions and all questions answered. ? Thank you for allowing me to participate in his care TODAY'S VISIT Patient is here today for follow-up. Patient reports that since the last time I have seen him he has been feeling better. He is able to move his bowels without any issues. Denies any abdominal pain or discomfort. Denies melena, hematochezia, unintentional weight loss or ribbon like stools. Patient denies dyspepsia, dysphagia or odynophagia. Patient reports that he changed his diet and is doing well. Denies any GI concerning symptoms. [facility] Medical History Leucopenia ELIANE (generalized anxiety disorder) ADHD (attention deficit hyperactivity disorder) Fever Surgical History Hx of colonoscopy History of nasal surgery Hx of elbow surgery Family History Mother Breast cancer Family history of thyroid problem Father No problems noted. Social History Housing: House Are you a primary critical care unit manager to a significant other at home: No Do you presently have visiting nurse or other home services: No Alcohol intake: current Alcohol intake frequency: holidays/special occasions only Patient Tobacco Use Status: Never used Tobacco e-Cigarette/Vaping Use: Never Used Second Hand Smoke Exposure: No Current occupational status: unemployed Cognitive needs: No Hearing needs: No Vision needs: No Review of Systems Const Denies weight gain and Denies weight loss ENT Reports no additional complaints, Denies dysphagia and Denies odynophagia Card Reports no additional complaints Resp Reports no additional complaints GI Denies abdominal pain, Denies belching, Denies melena, Denies bloating, Denies change in bowel habits, Denies dysphagia, Denies excessive flatus, Denies dyspepsia, Denies heartburn, Denies diarrhea, Denies loose stools, Denies nausea, Denies odynophagia and Denies vomiting Reports no additional complaints Musc Reports no additional complaints Neuro Reports no additional complaints Psych Reports no additional complaints Endo Reports no additional complaints Physical Exam Vital Signs: Last Vital Signs Pulse 82 02/07/24 07:58 BP 138/87 02/07/24 07:58 BMI result Body Mass Index 28.2 Const General: healthy appearing, no acute distress and well developed Nutritional Appearance: well nourished Orientation/consciousness: patient oriented x3 Resp Effort & Inspection: normal respiratory effort, able to speak in complete sentences, no tracheal deviation and symmetric chest movement Auscultation: clear to auscultation bilaterally Cardio Rate: regular rate GI Inspection: Yes normal to inspection and No distended Palpation (GI): Soft to palpation, not firm, nontender and No hepatosplenomegaly present Auscultation: normal bowel sounds General: Yes no CVA tenderness Back/Spine/Pelvis Back: no CVA tenderness Skin General skin exam: elasticity normal, turgor normal and dry skin Neuro General: patient oriented x3 Psych Appearance: grossly normal Mental Status: mental status grossly normal Assessment & Plan Assessment & Plan (1) Left sided abdominal pain: Code(s): R10.9 - Unspecified abdominal pain (2) IBS (irritable bowel syndrome): Code(s): K58.9 - Irritable bowel syndrome without diarrhea Qualifiers: Irritable bowel syndrome type: without diarrhea Qualified Code(s): K58.9 - Irritable bowel syndrome without diarrhea Plan Continue avoiding dietary triggers. Continue low FODMAP diet as much as possible. Increase fluid intake and activity to promote better bowel motility. I will see patient in 1 year, sooner on as needed basis. Patient is agreeable to this plan and verbalizes understanding of instructions. He was given the opportunity to ask questions all questions answered. Thank you for allowing me to participate in his care Coding Level of Care Code Est Pt Level 3 (06384) Diagnoses Left sided abdominal pain R10.9 Irritable bowel syndrome without diarrhea K58.9 Irritable bowel syndrome type: without diarrhea Time Spent (min) 25 Comment 15 minutes spent with patient and additional 10 minutes spent reviewing his records
== END 2024-02-07 08:20 | disposition home or self-care (01) ==
PROVIDERS: PCP Physician Assistant; Visit Provider Nurse Practitioner Family
DX: R10.9 Unspecified abdominal pain (principal); K58.9 Irritable bowel syndrome, unspecified
CPT/HCPCS: 99213

== ENCOUNTER → 2024-02-07 07:57 | Outpatient (BNVA) | payer OTHER, SELFPAY | PROVIDERS: PCP Physician Assistant; Visit Provider Nurse Practitioner Family | DX: R10.9 Unspecified abdominal pain (principal); K58.9 Irritable bowel syndrome, unspecified | CPT/HCPCS: 99212 ==

== ENCOUNTER 2024-02-19 14:19 | Outpatient (AMB) | payer OTHER, SELFPAY ==
[2024-02-19 14:37] VITALS: BP 120/82; PULSE 80; RESP 17; O2SAT 97; BMI 29.0
--- NOTE | 2024-02-19 14:37 | A.OFFPC_ITS ---
Vital Signs 02/19/24 14:37 Height 6 ft 1 in Weight 220 lb BMI 29.0 BP 120/82 Blood Pressure Location Lt brachial Position Sitting Respiration 17 Pulse 80 Pulse Source Pulse Oximeter Pulse Oximetry (%) 97 Oxygen Delivery Method Room Air Intake Visit Reasons: 3 months ADHD F/U Manager Purchasing Required: No Accompanied by: Self / Same As Patient Allergies azithromycin [AZITHROMYCIN] Allergy (Intermediate, Verified 02/19/24 14:41) RASH/hives clindamycin Allergy (Intermediate, Verified 02/19/24 14:41) rash/hives levofloxacin [From LEVAQUIN] Allergy (Intermediate, Verified 02/19/24 14:41) RASH peanut Allergy (Intermediate, Verified 02/19/24 14:41) swollen lymph nodes scallops Allergy (Intermediate, Verified 02/19/24 14:41) swollen lymph nodes sesame seed Allergy (Intermediate, Verified 02/19/24 14:41) swollen lymph nodes Sulfa (Sulfonamide Antibiotics) [SULFA (SULFONAMIDE ANTIBIOTICS)] Allergy (Intermediate, Verified 02/19/24 14:41) rash/hives wheat Allergy (Intermediate, Verified 02/19/24 14:41) swollen lymph nodes Medication List - Last Reconciled 02/19/24 by Amauri Ma PA-C cholecalciferol (vitamin D3) 50 mcg PO DAILY dextroamphetamine-amphetamine 10 mg (Adderall) 10 mg PO BID 28 days lorazepam 0.5 mg PO DAILY PRN 14 days Tobacco use date assessed: 12/18/23 HPI 3 months ADHD F/U HPI Details Patient is a 33-year-old male here today for ADHD follow-up visit. Patient continues with Adderall 10 mg b.i.d. his ADHD symptoms which have been well controlled with medication. He is also followed with Gastroenterology here in [place] and has no other further GI concerns. Has been staying away from gluten and food allergens and has been doing quite well [facility] Medical History Leucopenia ELIANE (generalized anxiety disorder) ADHD (attention deficit hyperactivity disorder) Fever Surgical History Hx of colonoscopy History of nasal surgery Hx of elbow surgery Family History Mother Breast cancer Family history of thyroid problem Father No problems noted. Social History Housing: House Are you a primary resident care manager to a significant other at home: No Do you presently have visiting nurse or other home services: No Alcohol intake: current Alcohol intake frequency: holidays/special occasions on ly Patient Tobacco Use Status: Never used Tobacco e-Cigarette/Vaping Use: Never Used Second Hand Smoke Exposure: No Current occupational status: unemployed Cognitive needs: No Hearing needs: No Vision needs: No Questionnaire Thrive Questionnaire Date Thrive assessed: 12/18/23 ELIANE-7 AMB Questionnaire ELIANE-7 Date ELIANE - 7 assessed: 12/18/23 Source: Developed by Drs. Barrie Callahan, Laurel Wilhelm, Arben Mallory and colleagues, with an educational nelson from [employer]. Review of Systems Const Denies headache(s) Eyes Denies loss of vision ENT Denies vertigo, Denies dizziness, Denies headache(s) and Denies sore throat Card Denies chest pain, Denies leg edema and Denies lightheadedness Resp Denies cough, Denies hemoptysis and Denies wheezing GI Denies abdominal pain, Denies melena, Denies constipation, Denies diarrhea and Denies vomiting Denies dysuria, Denies urinary frequency and Denies urinary urgency Musc Denies arthralgias, Denies joint swelling, Denies numbness and Denies tingling Neuro Denies Abnormal speech present, Denies behavioral changes, Denies vertigo, Denies dizziness, Denies headache(s), Denies loss of vision, Denies memory loss, Denies numbness and Denies tingling Psych Denies anxiety, Denies behavioral changes, Denies depression, Denies memory loss and Denies panic attacks Best/Lymph Denies easy bleeding and Denies easy bruising Aller/Immun Denies wheezing Physical exam (Primary Care) Vital Signs: Last Vital Signs Pulse 80 02/19/24 14:37 Resp 17 02/19/24 14:37 BP 120/82 02/19/24 14:37 Pulse Ox 97 02/19/24 14:37 Oxygen Delivery Method Room Air 02/19/24 14:37 BMI result Body Mass Index 29.0 Tobacco/Smoking Status: Tobacco use Status Tobacco use date assessed 12/18/23 02/19/24 14:41 Patient Tobacco Use Status Never used Tobacco 02/19/24 14:41 e-Cigarette/Vaping Use Never Used 02/19/24 14:41 Thrive Assessment: Date of Thrive Assessment Date Thrive assessed 12/18/23 02/19/24 14:41 Const General: healthy appearing, no acute distress, alert and awake Nutritional Appearance: well nourished Orientation/consciousness: oriented to person, oriented to place and oriented to time HENMT Ears: TM's normal bilaterally General nose exam: Normal nasal mucous membranes and turbinates present Eyes Conjunctivae: conjunctivae normal Sclerae: sclerae normal Pupils: Equal, round and reactive pupils present Neck Neck: Yes no lymphadenopathy and Yes no JVD Thyroid: Thyroid normal Carotids: no bruits Resp Effort & Inspection: normal respiratory effort and not tachypneic Auscultation: no crackles, no rales, no rhonchi and no wheezes Cardio Rate: regular rate Rhythm: regular rhythm Heart sounds: no murmurs and normal S1 and S2 GI Palpation (GI): Soft to palpation, nontender, no hepatomegaly and no splenomegaly Auscultation: normal bowel sounds Skin General skin exam: no rashes or lesions noted and dry skin Neuro General: oriented to person, oriented to place and oriented to time Cranial nerves: Yes Equal, round and reactive pupils present Speech: No Abnormal speech present Gait exam (Neuro): Normal gait present Motor exam (neuro): no tremor noted Extrem Right upper extremity: full ROM Left upper extremity: full ROM Right lower extremity: full ROM; no edema Left lower extremity: full ROM; no edema Psych Mental Status: mental status grossly normal Speech and movement: Normal speech and movement present Affect: normal affect Attitude: cooperative Thought process: Normal thought process present Assessment and Plan Assessment & Plan (1) ADHD: Code(s): F90.9 - Attention-deficit hyperactivity disorder, unspecified type Qualifiers: Attention deficit-hyperactivity disorder type: predominantly inattentive Qualified Code(s): F90.0 - Attention-deficit hyperactivity disorder, predominantly inattentive type Plan: Stable with Adderall. Originally prescribed by psychiatrist. He is doing well working full-time. Continue to follow-up (2) ELIANE (generalized anxiety disorder): Code(s): F41.1 - Generalized anxiety disorder Plan: Patient's ELIANE-7 score 0. Has a history of generalized anxiety disorder. Stable with Ativan daily p.r.n.-educated about dependency and memory loss, patient reports he does not take Ativan every day Medications: Refilled dextroamphetamine-amphetamine 10 mg (Adderall) 10 mg PO BID 56 tabs 0RF 28 days F90.9 - Attention-deficit hyperactivity disorder, unspecified type Coding Level of Care Code Est Pt Level 4 (74169) Diagnoses Attention deficit hyperactivity disorder (ADHD), predominantly inattentive type F90.0 Attention deficit-hyperactivity disorder type: predominantly inattentive ELIANE (generalized anxiety disorder) F41.1
== END 2024-02-19 14:51 | disposition home or self-care (01) ==
PROVIDERS: PCP Physician Assistant; Visit Provider Physician Assistant
DX: F90.0 Attention-deficit hyperactivity disorder, predominantly inattentive type (principal); F41.1 Generalized anxiety disorder
CPT/HCPCS: 99214

== ENCOUNTER 2024-06-19 10:25 | Outpatient (AMB) | payer OTHER, SELFPAY ==
[2024-06-19 10:35] VITALS: BP 120/82; PULSE 76; O2SAT 99; BMI 27.9
--- NOTE | 2024-06-19 10:35 | MHC.PC.OV ---
Vital Signs 06/19/24 10:35 Height 6 ft 1 in Weight 211 lb 4 oz BMI 27.9 BP 120/82 Blood Pressure Location Lt brachial Position Sitting Pulse 76 Pulse Source Pulse Oximeter Pulse Oximetry (%) 99 Oxygen Delivery Method Room Air Intake Visit Reasons: pe Intake Note: Patient is here today for a physical. Adolescent Medicine Specialist Required: No Accompanied by: Self / Same As Patient Allergies azithromycin [AZITHROMYCIN] Allergy (Intermediate, Verified 06/19/24 10:59) RASH/hives clindamycin Allergy (Intermediate, Verified 06/19/24 10:59) rash/hives levofloxacin [From LEVAQUIN] Allergy (Intermediate, Verified 06/19/24 10:59) RASH peanut Allergy (Intermediate, Verified 06/19/24 10:59) swollen lymph nodes scallops Allergy (Intermediate, Verified 06/19/24 10:59) swollen lymph nodes sesame seed Allergy (Intermediate, Verified 06/19/24 10:59) swollen lymph nodes Sulfa (Sulfonamide Antibiotics) [SULFA (SULFONAMIDE ANTIBIOTICS)] Allergy (Intermediate, Verified 06/19/24 10:59) rash/hives wheat Allergy (Intermediate, Verified 06/19/24 10:59) swollen lymph nodes Medication List - Last Reconciled 06/19/24 by Amauri Ma PA-C cholecalciferol (vitamin D3) 50 mcg PO DAILY dextroamphetamine-amphetamine 10 mg (Adderall) 10 mg PO BID 28 days lorazepam 0.5 mg PO DAILY PRN 14 days Tobacco use date assessed: 12/18/23 Dental Screening Dental Screen Date: 12/18/23 HPI pe HPI Details Patient is a 33-year-old male here today for a routine annual physical. Patient has a past medical history significant for ADHD and generalized anxiety disorder. Patient continues with Adderall 10 mg b.i.d. his ADHD symptoms which have been well controlled with medication. .. Wheat intolerance: Has completely discontinued weight out of his diet and now feels great. Also has done allergy testing in the past which noted peanut in sesame seed allergens. He would like to see an glass or mirror inspector for further testing in recommendations on his allergies. .. Generalized anxiety disorder: Has generally been fairly well controlled. He reports over the last several months having some increase panic attack and anxious symptoms. Has been having to use his lorazepam a bit more. He will try to reestablish care with his mental health therapist to help him with his anxiety as well. He is also followed with Gastroenterology here in [place] and has no other further GI concerns. Has been staying away from gluten and food allergens and has been doing quite well Vaccines: Up-to-date with COVID vaccine, tetanus vaccine. [facility] Medical History Leucopenia ELIANE (generalized anxiety disorder) ADHD (attention deficit hyperactivity disorder) Fever Surgical History Hx of colonoscopy History of nasal surgery Hx of elbow surgery Family History Mother Breast cancer Family history of thyroid problem Father No problems noted. Social History (Updated 06/19/24 @ 11:04 by Amauri Ma PA-C) Housing: House Are you a primary ocular care technician to a significant other at home: No Do you presently have visiting nurse or other home services: No Alcohol intake: current Alcohol intake frequency: holidays/special occasions only Alcohol type: wine Patient Tobacco Use Status: Never used Tobacco e-Cigarette/Vaping Use: Never Used Second Hand Smoke Exposure: No Current occupational status: employed Current occupation: [employer] Cognitive needs: No Hearing needs: No Vision needs: No Questionnaire Thrive Questionnaire Date Thrive assessed: 12/18/23 ELIANE-7 AMB Questionnaire ELIANE-7 Date ELIANE - 7 assessed: 12/18/23 Source: Developed by Drs. Barrie Callahan, Laurel Wilhelm, Arben Mallory and colleagues, with an educational nelson from [employer]. Review of Systems Const Denies body aches, Denies chills, Denies excessive sweating, Denies fatigue, Denies fever(s) and Denies headache(s) Eyes Denies blurry vision ENT Denies dysphagia, Denies vertigo, Denies dizziness, Denies headache(s), Denies hearing loss and Denies tinnitus Card Denies chest pain, Denies chest pain with activity, Denies syncope, Denies irregular heart rhythm and Denies dyspnea Resp Denies chest congestion, Denies cough, Denies hemoptysis, Denies dyspnea and Denies wheezing GI Denies abdominal pain, Denies melena, Denies hematochezia, Denies coffee ground emesis, Denies dysphagia, Denies diarrhea, Denies nausea and Denies vomiting Denies difficulty urinating, Denies dysuria, Denies urinary frequency, Denies urinary hesitancy and Denies urinary urgency Musc Denies arthralgias, Denies limited range of motion, Denies muscle cramps and Denies muscle weakness Skin/Breast Denies rash and Denies skin ulcer Neuro Denies Abnormal speech present, Denies confusion, Denies vertigo, Denies dizziness, Denies syncope, Denies headache(s), Denies memory loss and Denies seizure-like activity Psych Denies anxiety, Denies confusion, Denies depression, Denies memory loss, Denies panic attacks and Denies paranoia Endo Denies excessive sweating, Denies fatigue, Denies flushing, Denies polydipsia and Denies polyuria Aller/Immun Denies wheezing Physical exam (Primary Care) Vital Signs: Last Vital Signs Pulse 76 06/19/24 10:35 BP 120/82 06/19/24 10:35 Pulse Ox 99 06/19/24 10:35 Oxygen Delivery Method Room Air 06/19/24 10:35 BMI result Body Mass Index 27.9 Tobacco/Smoking Status: Tobacco use Status Tobacco use date assessed 12/18/23 06/19/24 10:36 Patient Tobacco Use Status Never used Tobacco 06/19/24 11:04 e-Cigarette/Vaping Use Never Used 06/19/24 11:04 Thrive Assessment: Date of Thrive Assessment Date Thrive assessed 12/18/23 06/19/24 10:36 Const General: cooperative, comfortable, no acute distress, alert and awake; No confusion Orientation/consciousness: oriented to person, oriented to place, patient oriented x3 and No confusion HENMT Head: Yes normocephalic Ears: external ears normal and TM's normal bilaterally Face and sinus: No sinus tenderness Mouth: Normal oral and palatal mucosa present and tongue normal Teeth and gingiva: dentition normal and gingiva normal Throat: Yes posterior oropharynx normal, Yes tonsils normal and Yes uvula midline Eyes Conjunctivae: conjunctivae normal Sclerae: sclerae normal Pupils: Equal, round and reactive pupils present EOM: EOMs intact bilaterally Direct Ophthalmoscopy: No no photophobia Neck Neck: Yes no lymphadenopathy, No tender and Yes no JVD Thyroid: Thyroid normal Carotids: no bruits Chest Chest palpation & inspection: no tenderness Resp Effort & Inspection: normal respiratory effort, no audible wheezes, not labored and no stridor Auscultation: no crackles, no rales, no rhonchi and no wheezes Cardio Jugular venous distension: no JVD Rate: regular rate, not bradycardic and not tachycardic Rhythm: regular rhythm Bruits: no carotid bruits Peripheral pulses: Peripheral pulses 2+ throughout GI Inspection: Yes normal to inspection, No abdominal wall ecchymosis and No visible herniation Palpation (GI): Soft to palpation, nontender, no guarding, not rigid and No hepatosplenomegaly present Auscultation: normoactive bowel sounds General: Yes no CVA tenderness Back/Spine/Pelvis Back: no CVA tenderness and No back tenderness Cervical Spine: cervical ROM normal Thoracic/Lumbar Spine: thoracic and lumbar spine normal to inspection, straight leg raise negative bilaterally, No thoraco-lumbar ROM limited and No lumbar spinal tenderness Skin Lesions: no lesions Rashes: no rashes Wounds: no wounds Neuro General: oriented to person, oriented to place, patient oriented x3, CN's II-XI intact bilaterally and No confusion Cranial nerves: Yes Equal, round and reactive pupils present and Yes Normal accommodation reflex present Cognition (Neuro): normal cognition Speech: No Abnormal speech present Gait exam (Neuro): Normal gait present Motor exam (neuro): 5/5 motor strength present throughout Extrem Right upper extremity: full ROM; no cyanosis Left upper extremity: full ROM; no cyanosis Right lower extremity: no edema Left lower extremity: no edema Psych Appearance: grossly normal Mental Status: mental status grossly normal Affect: normal affect Attitude: cooperative Thought process: Normal thought process present Assessment and Plan Assessment & Plan (1) Annual physical exam: Code(s): Z00.00 - Encounter for general adult medical examination without abnormal findings (2) ADHD: Code(s): F90.9 - Attention-deficit hyperactivity disorder, unspecified type Qualifiers: Attention deficit-hyperactivity disorder type: predominantly inattentive Qualified Code(s): F90.0 - Attention-deficit hyperactivity disorder, predominantly inattentive type Plan: Stable with Adderall. Originally prescribed by psychiatrist. He is doing well working full-time. Continue to follow-up (3) ELIANE (generalized anxiety disorder): Code(s): F41.1 - Generalized anxiety disorder Plan: Ten reports his anxiety has been a little bit worse as of late as he has been having a little bit more panic and using bit more lorazepam. He feels he will reach out to his therapist to restart cognitive behavioral therapy. Has a history of generalized anxiety disorder. Stable with Ativan daily p.r.n.-educated about dependency and memory loss, patient reports he does not take Ativan every day (4) Wheat intolerance: Code(s): K90.41 - Non-celiac gluten sensitivity Plan: Patient does have a wheat intolerance and has stopped all weight products and has felt great. Has done allergy testing in 2022 which did show allergies to scalp, peanuts and sesame seed. He is interested in seeing glass or mirror inspector thus will place referral Orders: Orders Comprehensive [place]. Panel Fast Today Z13.1 - Encounter for screening for diabetes mellitus Vitamin D 25-OH Total Today R79.89 - Other specified abnormal findings of blood chemistry Complete Blood Count no Diff Today D70.9 - Neutropenia, unspecified Referrals Allergy & Immunology Referral K90.41 - Non-celiac gluten sensitivity, L50.8 - Other urticaria Medications: Refilled lorazepam 0.5 mg PO DAILY PRN 14 tabs 2RF anxiety 14 days F41.1 - Generalized anxiety disorder dextroamphetamine-amphetamine 10 mg (Adderall) 10 mg PO BID 56 tabs 0RF 28 days F90.9 - Attention-deficit hyperactivity disorder, unspecified type Coding Level of Care Code Est Pt Prev Care [id number]) Diagnoses Annual physical exam Z00.00 Attention deficit hyperactivity disorder (ADHD), predominantly inattentive type F90.0 Attention deficit-hyperactivity disorder type: predominantly inattentive ELIANE (generalized anxiety disorder) F41.1 Wheat intolerance K90.41
== END 2024-06-19 11:28 | disposition home or self-care (01) ==
PROVIDERS: PCP Physician Assistant; Visit Provider Physician Assistant
DX: Z00.00 Encounter for general adult medical examination without abnormal findings (principal); F90.0 Attention-deficit hyperactivity disorder, predominantly inattentive type; F41.1 Generalized anxiety disorder; K90.41 Non-celiac gluten sensitivity
CPT/HCPCS: 99395

== ENCOUNTER 2025-02-10 08:52 | Outpatient (REF) | payer OTHER, SELFPAY ==
[2025-02-10 10:32] LABS: Hematocrit 44.4 % (42.0-52.0); Hemoglobin 15.3 g/dl (14.0-18.0); Mean Corpuscular HGB Conc 34.5 g/dl (31.0-36.0); Mean Corpuscular Hemoglobin 29.7 pg (27.0-33.0); Mean Corpuscular Volume 86.2 fL (80.0-98.0); Mean Platelet Volume 9.4 fL (9.4-12.4); Platelet Count 240 X10*3/uL (160-400); Red Blood Count 5.15 X10*6/uL (4.60-5.80); Red Cell Distribution Width 12.4 % (11.0-16.0)
[2025-02-10 12:17] LABS: Alanine Aminotransferase 26 U/L (0-40); Albumin Level 4.6 g/dL (3.5-5.0); Alkaline Phosphatase 73 U/L (39-117); Anion Gap 11 (12-20); Aspartate Amino Transferase 24 U/L (5-37); Bilirubin Total 0.5 mg/dL (0.0-1.0); Blood Urea Nitrogen 11 mg/dL (9-16); Calcium 9.2 mg/dL (8.4-10.2); Carbon Dioxide 25 mmol/L (22-29); Chloride 109 mmol/L (96-108); Estimated Glomerular Filt Rate > 60; Glucose Fasting 103 mg/dL (60-99); Potassium 3.8 mmol/L (3.3-5.1); Sodium 141 mmol/L (135-145); Total Protein 7.3 g/dL (6.5-8.0); Vitamin D 25-OH Total 68.2 ng/mL (>30)
== END 2025-02-10 08:53 | disposition home or self-care (01) ==
LOC: HO.10HDL 08:52
PROVIDERS: Visit Provider Physician Assistant
DX: Z13.1 Encounter for screening for diabetes mellitus (principal); D70.9 Neutropenia, unspecified; R79.89 Other specified abnormal findings of blood chemistry
CPT/HCPCS: 36415; 80053; 82306; 85027

== ENCOUNTER 2025-02-12 08:10 | Outpatient (AMB) | payer OTHER, SELFPAY ==
--- NOTE | 2025-02-12 08:15 | MHC.PC.OV ---
Vital Signs 02/12/25 08:17 Height 6 ft 1 in Weight 217 lb 8 oz BMI 28.7 BP 132/68 Blood Pressure Location Lt brachial Position Sitting Pulse 81 Pulse Source Pulse Oximeter Temp 97.1 F Temp Source Temporal Artery Scan Pulse Oximetry (%) 98 Oxygen Delivery Method Room Air Intake Visit Reasons: f/u ADHd Intake Note: Patient is here to follow up on ADHD. Ore Crushing Dust Collector Required: No Co Director: Not Required per policy Accompanied by: Self / Same As Patient Allergies azithromycin [AZITHROMYCIN] Allergy (Intermediate, Verified 02/12/25 08:24) RASH/hives clindamycin Allergy (Intermediate, Verified 02/12/25 08:24) rash/hives levofloxacin [From LEVAQUIN] Allergy (Intermediate, Verified 02/12/25 08:24) RASH peanut Allergy (Intermediate, Verified 02/12/25 08:24) swollen lymph nodes scallops Allergy (Intermediate, Verified 02/12/25 08:24) swollen lymph nodes sesame seed Allergy (Intermediate, Verified 02/12/25 08:24) swollen lymph nodes Sulfa (Sulfonamide Antibiotics) [SULFA (SULFONAMIDE ANTIBIOTICS)] Allergy (Intermediate, Verified 02/12/25 08:24) rash/hives wheat Allergy (Intermediate, Verified 02/12/25 08:24) swollen lymph nodes Medication List - Last Reconciled 02/12/25 by Amauri Ma PA-C cholecalciferol (vitamin D3) 50 mcg PO DAILY dextroamphetamine-amphetamine 10 mg (Adderall) 10 mg PO BID 28 days lorazepam 0.5 mg PO DAILY PRN 14 days Tobacco use date assessed: 02/12/25 Dental Screening Dental Screen Date: 02/12/25 Did you have a dental visit in the last 12 months?: No Did you have a dental problem in the last 6 months where you did not have access to dental care?: No Was dental information given to patient?: No HPI f/u ADHd HPI Details Patient is a 34-year-old male here today for a follow-up visit. Patient has a past medical history significant for ADHD and generalized anxiety disorder multiple environmental allergies, and wheat intolerance. Concern--> In the dermatological context, he developed contact dermatitis attributed to Tide detergent, causing flakey skin in focal areas since its use commenced. He relates this to a previous episode of sensitivity to the same detergent and now opts to switch products. Also he reports increased urination frequency approximately ten times daily over the last month. He also occasionally experiences blurred vision. The symptoms prompted him to research these online, leading him to anxiety about potential prediabetes. However, he typically maintains an extensive water intake and high caffeine consumption. .. Wheat intolerance: Has completely discontinued weight out of his diet and now feels great. Also has done allergy testing in the past which noted peanut in sesame seed allergens. He would like to see an band master for further testing in recommendations on his allergies. .. :ADHD: Luis continues with the use of Adderall with good effect on his attention focus. Continues to work full-time job at [employer]. .. Generalized anxiety disorder: Has generally been fairly well controlled. He reports over the last several months having some increase panic attack and anxious symptoms. Has been having to use his lorazepam a bit more. He will try to reestablish care with his mental health therapist to help him with his anxiety as well. [facility] Medical History Leucopenia ELIANE (generalized anxiety disorder) ADHD (attention deficit hyperactivity disorder) Fever Surgical History Hx of colonoscopy History of nasal surgery Hx of elbow surgery Family History Mother Breast cancer Family history of thyroid problem Father No problems noted. Social History Housing: House Are you a primary ocular care technician to a significant other at home: No Do you presently have visiting nurse or other home services: No Alcohol intake: current Alcohol intake frequency: holidays/special occasions only Alcohol type: wine Patient Tobacco Use Status: Never used Tobacco e-Cigarette/Vaping Use: Never Used Second Hand Smoke Exposure: No service: No Current occupational status: employed Current occupation: [employer] Cognitive needs: No Hearing needs: No Vision needs: No Questionnaire PHQ-9 Over the last 2 weeks, how often have you been bothered by any of the following problems? 1. Little interest or pleasure in doing things: not at all 2. Feeling down, depressed, or hopeless: not at all 3. Trouble falling or staying asleep, or sleeping too much: not at all 4. Feeling tired or having little energy: not at all 5. Poor appetite or overeating: not at all 6. Feeling bad about yourself - or that you are a failure or have let yourself or your family down: not at all 7. Trouble concentrating on things, such as reading the newspaper or watching television: not at all 8. Moving or speaking so slowly that other people could have noticed. Or the opposite - being so fidgety or restless that you have been moving around a lot more than usual: not at all 9. Thoughts that you would be better off or of hurting yourself in some way: not at all Total score: 0 Depression Screening Interpretation: Negative Depression Screening Done: Yes Source: Developed by Drs. Barrie Callahan, Laurel Wilhelm, Arben Mallory and colleagues, with an educational nelson from [employer]. Thrive Questionnaire Date Thrive assessed: 02/12/25 I am a: Patient What is your living situation today?: I have a steady place to live Within the past 12 months, did the food you bought not last and you didn't have the money to get more?: Never true Within the past 12 months, did you worry whether your food would run out before you got money to buy more?: Never true Do you have trouble paying for medicines?: No Do you have trouble getting transportation to medical appointments?: No Do you have trouble paying your heating and electricity bill?: No Do you have trouble taking care of your child, family member or friend?: No Do you have trouble with day-to-day activities such as bathing, preparing meals, shopping, managing finances, etc.?: No Are you currently unemployed and looking for a job?: No Are you interested in more education?: No Please select the resources that you would like help with: None Currently or been in a relationship where the following occur: No concerns reported THRIVE Score: 0 AUDIT C Alcohol Use Questionnaire (AUDIT-C) 1. How often do you have a drink containing alcohol?: Monthly or less 2. How many drinks containing alcohol do you have on a typical day when you are drinking?: 1 or 2 Total Score: 1 ELIANE-7 AMB Questionnaire ELIANE-7 Date ELIANE - 7 assessed: 02/12/25 Feeling nervous, anxious, or on edge: 1 = Several days Not being able to stop or control worryin = Several days Worrying too much about different things: 1 = Several days Trouble relaxin = Several days Being so restless that it is hard to sit still: 1 = Several days Becoming easily annoyed or irritable: 2 = More than half the days Feeling afraid as if something awful might happen: 2 = More than half the days Total ELIANE-7 score (0-4 normal; 5-9 mild; 10-14 moderate; 15-21 severe): 9 Source: Developed by Drs. Barrie Callahan, Laurel Wilhelm, Arben Mallory and colleagues, with an educational nelson from [employer]. Review of Systems Const Denies headache(s) Eyes Denies loss of vision ENT Denies vertigo, Denies dizziness, Denies headache(s) and Denies sore throat Card Denies chest pain, Denies leg edema and Denies lightheadedness Resp Denies cough, Denies hemoptysis and Denies wheezing GI Denies abdominal pain, Denies melena, Denies constipation, Denies diarrhea and Denies vomiting Denies dysuria, Denies urinary frequency and Denies urinary urgency Musc Denies arthralgias, Denies joint swelling, Denies numbness and Denies tingling Neuro Denies Abnormal speech present, Denies behavioral changes, Denies vertigo, Denies dizziness, Denies headache(s), Denies loss of vision, Denies memory loss, Denies numbness and Denies tingling Psych Denies anxiety, Denies behavioral changes, Denies depression, Denies memory loss and Denies panic attacks Best/Lymph Denies easy bleeding and Denies easy bruising Aller/Immun Denies wheezing Physical exam (Primary Care) Vital Signs: Last Vital Signs Temp 97.1 F 02/12/25 08:17 Pulse 81 02/12/25 08:17 BP 132/68 02/12/25 08:17 Pulse Ox 98 02/12/25 08:17 Oxygen Delivery Method Room Air 02/12/25 08:17 BMI result Body Mass Index 28.7 Tobacco/Smoking Status: Tobacco use Status Tobacco use date assessed 02/12/25 02/12/25 08:22 Patient Tobacco Use Status Never used Tobacco 02/12/25 08:22 e-Cigarette/Vaping Use Never Used 02/12/25 08:22 PHQ-9: PHQ-9 Score PHQ-9: Total score 0 02/12/25 08:27 Depression Screening Interpretation: Negative Thrive Assessment: Date of Thrive Assessment Date Thrive assessed 02/12/25 02/12/25 08:22 Currently or been in a relationship where the following occur: No concerns reported Const General: healthy appearing, no acute distress, alert and awake Nutritional Appearance: well nourished Orientation/consciousness: oriented to person, oriented to place and oriented to time HENMT Ears: TM's normal bilaterally Outer ear/TM images: 1. DRY FLAKY SKIN NOTED OVER THE UPPER ASPECT OF THE LEFT PINNA, SKIN SLIGHTLY EDEMATOUS General nose exam: Normal nasal mucous membranes and turbinates present Eyes Conjunctivae: conjunctivae normal Sclerae: sclerae normal Pupils: Equal, round and reactive pupils present Neck Neck: Yes no lymphadenopathy and Yes no JVD Thyroid: Thyroid normal Carotids: no bruits Resp Effort & Inspection: normal respiratory effort and not tachypneic Auscultation: no crackles, no rales, no rhonchi and no wheezes Cardio Rate: regular rate Rhythm: regular rhythm Heart sounds: no murmurs and normal S1 and S2 GI Palpation (GI): Soft to palpation, nontender, no hepatomegaly and no splenomegaly Auscultation: normal bowel sounds Skin General skin exam: no rashes or lesions noted and dry skin Neuro General: oriented to person, oriented to place and oriented to time Cranial nerves: Yes Equal, round and reactive pupils present Speech: No Abnormal speech present Gait exam (Neuro): Normal gait present Motor exam (neuro): no tremor noted Extrem Right upper extremity: full ROM Left upper extremity: full ROM Right lower extremity: full ROM; no edema Left lower extremity: full ROM; no edema Psych Mental Status: mental status grossly normal Speech and movement: Normal speech and movement present Affect: normal affect Attitude: cooperative Thought process: Normal thought process present Coding Level of Care Code Est Pt Level 4 (49934) Diagnoses Attention deficit hyperactivity disorder (ADHD), predominantly inattentive type F90.0 Attention deficit-hyperactivity disorder type: predominantly inattentive Urinary urgency R39.15 Elevated blood sugar R73.9 Lesion of skin of nose L98.9 Wheat intolerance K90.41 Dermatitis L30.9 Assessment & Plan Assessment & Plan (1) ADHD: Code(s): F90.9 - Attention-deficit hyperactivity disorder, unspecified type Category: Medical Qualifiers: Attention deficit-hyperactivity disorder type: predominantly inattentive Qualified Code(s): F90.0 - Attention-deficit hyperactivity disorder, predominantly inattentive type Plan: Patient's ADHD seems to be well controlled, he is able to stay focused in intentional in his job tasks with the use Adderall at current dose. (2) Urinary urgency: Code(s): R39.15 - Urgency of urination Category: Medical Plan: A urinalysis will be performed to rule out infection. An ultrasound will check for bladder stones, which may be causing the urinary urgency. Advice on reducing caffeine intake to mitigate symptoms has been provided, with potential pharmacological treatment for bladder spasms on further evaluation. (3) Elevated blood sugar: Code(s): R73.9 - Hyperglycemia, unspecified Category: Medical Plan: Will check an A1c to evaluate for prediabetes. He has had slightly elevated fasting blood sugars for quite some time now. He will work on lowering carbohydrates and sugar in his diet. (4) Lesion of skin of nose: Code(s): L98.9 - Disorder of the skin and subcutaneous tissue, unspecified Category: Medical Plan: He has noted skin lesions over his nose he would like to see a associate relations specialist about (5) Wheat intolerance: Code(s): K90.41 - Non-celiac gluten sensitivity Category: Medical Plan: Continue dietary management, mainly focusing on avoiding gluten products with a gluten sensitivity background. Follow-up may include further assessment by a gastrointestinal specialist if lymph node swelling persists. (6) Dermatitis: Code(s): L30.9 - Dermatitis, unspecified Category: Medical Plan: Will supply patient with topical steroid to use on the affected areas. He will try to stay away from causative agents. Has multiple environmental and food allergies. The patient continues with Zyrtec, exploring alternative antihistamines or montelukast for improved management. Allergy testing updates were suggested, given the historical context. Orders: Orders US bladder 02/12/25 R39.15 - Urgency of urination Hemoglobin A1c 02/12/25 R73.9 - Hyperglycemia, unspecified UA CC w/rflx Micro + Cult 02/12/25 R30.0 - Dysuria, R39.15 - Urgency of urination Referrals Dermatology Referral L98.9 - Disorder of the skin and subcutaneous tissue, unspecified Medications: New triamcinolone acetonide 0.1% 1 appl topical DAILY 80 grams 0RF 30 days L98.9 - Disorder of the skin and subcutaneous tissue, unspecified
[2025-02-12 08:17] VITALS: BP 132/68; PULSE 81; TEMP 36.2; O2SAT 98; BMI 28.7
== END 2025-02-12 08:52 | disposition home or self-care (01) ==
LOC: HO.HMCH 08:10
PROVIDERS: PCP Physician Assistant; Visit Provider Physician Assistant
DX: F90.0 Attention-deficit hyperactivity disorder, predominantly inattentive type (principal); R39.15 Urgency of urination; R73.9 Hyperglycemia, unspecified; L98.9 Disorder of the skin and subcutaneous tissue, unspecified; K90.41 Non-celiac gluten sensitivity; L30.9 Dermatitis, unspecified

== ENCOUNTER → 2025-02-12 08:10 | Outpatient (BNVA) | payer OTHER, SELFPAY | PROVIDERS: PCP Physician Assistant; Visit Provider Physician Assistant | DX: F90.0 Attention-deficit hyperactivity disorder, predominantly inattentive type (principal); R39.15 Urgency of urination; R73.9 Hyperglycemia, unspecified; L98.9 Disorder of the skin and subcutaneous tissue, unspecified; K90.41 Non-celiac gluten sensitivity; L30.9 Dermatitis, unspecified | CPT/HCPCS: 99212 ==

== ENCOUNTER 2025-10-07 03:31 | Emergency (ER) | payer OTHER, SELFPAY ==
--- NOTE | ~2025-10-07 | XR_ITS ---
CLINICAL HISTORY: chest pain 1 view chest x-ray Comparison: None provided Findings: No consolidation or effusion. Normal size heart. No acute fracture. IMPRESSION: 1. No acute findings. This document has been electronically signed by: Charbel Beach MD, PHD on 10/07/2025 04:47:13
--- NOTE | 2025-10-07 03:33 | ECG_ITS ---
Test Reason : CHEST PAIN Blood Pressure : */* mmHG Vent. Rate : 104 BPM Atrial Rate : 104 BPM P-R Int : 124 ms QRS Dur : 92 ms QT Int : 330 ms P-R-T Axes : 69 74 43 degrees QTcB Int : 433 ms Sinus tachycardia Otherwise normal ECG No previous ECGs available Referred By: Generic ED Physician Electronically Signed By: MADISON SUN MD
[2025-10-07 03:39] VITALS: BP 155/97; PULSE 101; RESP 20; TEMP 36.2; O2SAT 100; BMI 27.7
--- NOTE | 2025-10-07 04:10 | ED.GENADULT ---
HPI - General Adult General Chief complaint: General Medical Stated complaint: chest tightness + abd pain Time Seen by Provider: 10/07/25 04:10 Source: patient, RN notes reviewed and old records reviewed Mode of arrival: ambulatory Limitations: no limitations History of Present Illness ED Provider: Dr. Victoria Tabares HPI narrative: 35-year-old male with a history of multiple food allergies, anxiety, ADHD, leukopenia presenting with abdominal pain, nausea, chest pain, shortness of breath and diarrhea ongoing since about midnight tonight. Patient admits that he at 10:00 p.m. he ate a dinner that had peanuts in it, knowing that he is allergic to peanuts. States that he fell asleep and woke up with severe abdominal pain, anxiousness and diarrhea. [place] chest tightness and panic so he took a dose of Ativan at home. Admits that did not help much so he also took a Benadryl. Presents to the emergency department feeling anxious again. No vomiting. No hives, difficulty breathing, wheezing, passing out, tongue or throat swelling. Has been feeling well prior to this. Related Data Previous Rx's ?Medication ?Instructions ?Recorded cholecalciferol (vitamin D3) 50 50 mcg PO DAILY #90 caps 03/15/23 mcg (2,000 unit) capsule triamcinolone acetonide 0.1 % 1 appl topical DAILY 30 days #80 02/12/25 topical ointment grams dextroamphetamine-amphetamine 10 10 mg PO BID 28 days #56 tabs 09/22/25 mg tablet (Adderall) lorazepam 0.5 mg tablet 0.5 mg PO DAILY PRN anxiety 14 09/23/25 days #14 tabs epinephrine 0.3 mg/0.3 mL 0.3 mg (0.3 mL) IM Q10M PRN 10/07/25 injection, auto-injector (EpiPen anaphylaxis #2 ea 2-Danis) Allergies Allergy/AdvReac Type Severity Reaction Status Date / Time azithromycin (AZITHROMYCIN) Allergy Intermediate RASH/hives Verified 10/07/25 03:42 clindamycin Allergy Intermediate rash/hives Verified 10/07/25 03:42 levofloxacin (From LEVAQUIN) Allergy Intermediate RASH Verified 10/07/25 03:42 peanut Allergy Intermediate swollen Verified 10/07/25 03:42 lymph nodes scallops Allergy Intermediate swollen Verified 10/07/25 03:42 lymph nodes sesame seed Allergy Intermediate swollen Verified 10/07/25 03:42 lymph nodes Sulfa (Sulfonamide Allergy Intermediate rash/hives Verified 10/07/25 03:42 Antibiotics) (SULFA (SULFONAMIDE ANTIBIOTICS)) wheat Allergy Intermediate swollen Verified 10/07/25 03:42 lymph nodes Review of Systems Review of Systems: as per HPI, full review of systems performed and negative but for the above mentioned pertinent positives and negatives. [facility] Past Medical History Medical History Leucopenia ELIANE (generalized anxiety disorder) ADHD (attention deficit hyperactivity disorder) Fever Surgical History Hx of colonoscopy History of nasal surgery Hx of elbow surgery Family History Family History Mother Breast cancer Family history of thyroid problem Father No problems noted. Social History Social History Housing: House Are you a primary customer care agent to a significant other at home: No Do you presently have visiting nurse or other home services: No Alcohol intake: current Alcohol intake frequency: holidays/special occasions only Alcohol type: wine Patient Tobacco Use Status: Never used Tobacco Smoked in Last 30 Days: No e-Cigarette/Vaping Use: Never Used Second Hand Smoke Exposure: No Use of substances other than those prescribed or required for medical reasons: Yes Substance Use Type: Marijuana Substance Use Frequency: Occasionally Advance Directives: No Advance Directives Information Provided: Yes service: No Current occupational status: employed Current occupation: [employer] Cognitive needs: No Hearing needs: No Vision needs: No Physical Exam ED Exam Exam: GENERAL: Anxious, nontoxic appearing. SKIN: Normal skin color for ethnicity, warm, dry, intact, no rashes noted. HEENT: Normocephalic, atraumatic, no stridor, posterior oropharynx nonerythematous, dentition intact, EOMI. NECK: Soft, supple, full ROM, midline structures nontender, no step-offs, no deformities, no lymphadenopathy. CHEST: Heart regular tachycardia, no murmurs, symmetric chest rise and fall, no crepitus. PULMONARY: Clear to auscultation bilaterally, no labored breathing, no wheezes/rhales/ rhonchi. ABDOMINAL: Soft, nondistended, nontender, hyperactive bowel sounds in all quadrants. : Deferred. MUSCULOSKELETAL: Normal tone, full range of motion, no deformities, no peripheral edema. NEURO: Alert and oriented x3, CN II through XII intact, equal strength and sensation bilateral upper and lower extremities, no focal neurologic deficits. PSYCHIATRIC: Anxious affect, fluid speech, good eye contact and appropriate demeanor. Vital Signs: Vital Signs - 24 hr 10/07/25 03:39 10/07/25 05:36 10/07/25 06:10 Temperature 97.2 F 97.8 F 97.8 F Pulse Rate 101 H 72 72 Respiratory Rate 20 16 16 Blood Pressure 155/97 H 123/84 123/84 Pulse Oximetry 100 97 97 Oxygen Delivery Method Room Air Room Air Room Air BMI result Body Mass Index 27.7 Medical Decision Making Medical Decision Making MDM Narrative: Patient presented today for signs and symptoms of possible allergic reaction. Differential diagnosis did include angioedema, anaphylaxis, drug reaction, infection, among others. Physical examination does not show any signs of multiple system involvement such as anaphylaxis, though this was considered. Patient is not having any wheezing, nausea or vomiting, abdominal pain, or concerning swelling of the tongue or oropharynx. Airway is unobstructed and blood pressures are within normal limits. Anaphylaxis precautions have been given to the patient in a note to return immediately for signs and symptoms of this. Patient was offered/provided with a prescription for an Epi-Pen. Patient has been urged to follow up with campground manager as outpatient. All questions have been answered and patient is stable for discharge. They are welcome back at any time for re-evaluation as we are always happy to do so. Encouraged him to avoid peanuts and other triggers. Differential Diagnosis Differential Diagnoses: The differential diagnosis associated with the presentation includes (As above) Admission/Observation Consideration of admission/observation: Escalation of care including admission/observation considered Lab Data [facility] Lab Attestation statement: I reviewed the patient's lab results. 10/07/25 04:14 10/07/25 04:14 Labs: Lab Results 10/07/25 Range/Units 04:14 WBC 3.8 L (4.8-10.8) X10*3/uL RBC 4.84 (4.60-5.80) X10*6/uL Hgb 14.6 (14.0-18.0) g/dl Hct 41.2 L (42.0-52.0) % MCV 85.1 (80.0-98.0) fL MCH 30.2 (27.0-33.0) pg MCHC 35.4 (31.0-36.0) g/dl RDW 11.4 (11.0-16.0) % Plt Count 225 (160-400) X10*3/uL MPV 9.4 (9.4-12.4) fL Immature Gran % (Auto) 0.3 (0.0-0.4) % Neut % (Auto) 38.0 L (45-73) % Lymph % (Auto) 44.4 H (20-40) % [place] % (Auto) 11.0 (2-11) % Eos % (Auto) 6.0 H (0-4) % Baso % (Auto) 0.3 (0-2) % Lymph # (Auto) 1.7 (1.2-4.9) X10*3/uL [place] # (Auto) 0.4 (0.1-1.2) X10*3/uL Eos # (Auto) 0.2 (0.0-0.4) X10*3/uL Baso # (Auto) 0.0 (0.0-0.2) X10*3/uL Abs Immat Gran (auto) 0.01 (0.00-0.03) X10*3/uL Absolute Neuts (auto) 1.5 L (2.0-8.3) x10*3/uL Absolute Nucleated RBC 0.000 (0.0-0.012) X10*3/uL Nucleated RBC % (auto) 0.0 (0.0-0.2) /100WBC Sodium 138 (135-145) mmol/L Potassium 3.7 (3.3-5.1) mmol/L Chloride 105 (96-108) mmol/L Carbon Dioxide 23 (22-29) mmol/L Anion Gap 14 (12-20) BUN 9 (9-16) mg/dL Creatinine 0.97 (0.5-1.4) mg/dL Estim Creat Clear Calc 118.9 Estimated GFR > 60 Random Glucose 138 H (60-115) mg/dL Calcium 9.4 (8.4-10.2) mg/dL Total Bilirubin 0.3 (0.0-1.0) mg/dL AST 77 H (5-37) U/L ALT 61 H (0-40) U/L Alkaline Phosphatase 79 (39-117) U/L Troponin I High Sens < 2.7 (<3.5-35.0) ng/L Total Protein 7.0 (6.5-8.0) g/dL Albumin 4.8 (3.5-5.0) g/dL Independent Interpretation I performed an independent interpretation of an: Plain X-Ray Interpretation: My independent interpretation of the chest x-ray reveals no consolidations, pulmonary edema, pleural effusion, pneumothorax, obvious bony abnormalities. My independent interpretation of the ECG reveals normal sinus tachycardia with rate of 104, normal axis, normal intervals, no ST elevations or depressions to suggest ischemic changes, no previous for comparison. Radiology Impression Discussion of test interpretation with radiology: I have reviewed the radiologist's reading. External Record Review External record reviewed: Inpatient record and Office record Prescription Management I considered prescription management with: Other (EpiPen) Chronic Conditions Patient?s care impacted by: Other (Anxiety, ADHD, food allergies) Discharge Plan Discharge Clinical Impression: Allergic reaction to peanut, Acute abdominal pain, Diarrhea Patient Disposition: Home, Self-Care Instructions: Food Allergy (ED) Additional Instructions: Please try to avoid peanuts and any of the other allergens that you are aware of including wheat, scallops and sesame. Attempting to ingest these things at home could result in severe anaphylactic reaction and even . Please fill your EpiPen prescription as soon as possible and keep an EpiPen on your person at all times. If you are exposed to any of the food allergens that you discuss today, you should use your EpiPen and then come to the hospital immediately. Try to force your fluids over the next several days. Stay well hydrated and rest as much as possible. Return to the hospital with any new or worsening symptoms including: Worsening chest pain, difficulty breathing, passing out, fevers greater than 100?, any new symptom that concerns you. Call 911 with any medical emergency. Prescriptions: New epinephrine [EpiPen 2-Danis] 0.3 mg/0.3 mL auto-injector 0.3 mg IM Q10M PRN (Reason: anaphylaxis) Qty: 2 0RF Rx Instructions: for 2 doses No Action dextroamphetamine-amphetamine [Adderall] 10 mg tablet 10 mg PO BID 28 Days Qty: 56 0RF lorazepam 0.5 mg tablet 0.5 mg PO DAILY PRN (Reason: anxiety) 14 Days Qty: 14 2RF cholecalciferol (vitamin D3) 50 mcg (2,000 unit) capsule 50 mcg PO DAILY Qty: 90 3RF triamcinolone acetonide 0.1 % ointment 1 appl topical DAILY 30 Days Qty: 80 0RF Interventions: ED Discharge Assessment Last Done: 10/07/25 06:10 Discharge Date/Time: 10/07/25 06:15 Print Language: Brazilian
[2025-10-07 04:20] LABS: MANUAL DIFF FLAG NO
[2025-10-07 04:21] LABS: Hematocrit 41.2 % (42.0-52.0); Hemoglobin 14.6 g/dl (14.0-18.0); Imm Gran Abs Auto 0.01 X10*3/uL (0.00-0.03); Imm Gran Pct Auto 0.3 % (0.0-0.4); Lymphocytes Absolute Auto 1.7 X10*3/uL (1.2-4.9); Mean Corpuscular HGB Conc 35.4 g/dl (31.0-36.0); Mean Corpuscular Hemoglobin 30.2 pg (27.0-33.0); Mean Corpuscular Volume 85.1 fL (80.0-98.0); NRBC Abs Auto 0.000 X10*3/uL (0.0-0.012); NRBC Pct Auto 0.0 /100WBC (0.0-0.2); Platelet Count 225 X10*3/uL (160-400); Red Blood Count 4.84 X10*6/uL (4.60-5.80); White Blood Count 3.8 X10*3/uL (4.8-10.8)
--- OUTSIDE RECORDS SUMMARY | 2025-10-07 04:22 | XMS_ITS | Encounter Summary ---
Author Organization [facility] Address [address] [place] [id number] Phone Care Team Providers Care Plant Anatomy Teacher Name Role Phone Jj Tyson MD Primary Care Provider Jw naik Encounter Details Date Type Department Care Team (Late st Contact Info) Description 07/18/2012 Documentation [facility] [place] [facility] [address] [place] [address] Family Medicine, Physician [address] [place], [place] [id number] Social History Tobacco Use Types Packs/Day Years Used Date Smoking Tobacco: Never Assessed Sex and Gender Information Value Date Recorded Sex Assigned at Not on file Legal Sex Male 4:40 PM EDT Gender Identity Not on file Sexual Orientation Not on file documented as of this encounter Plan of Treatment Not on file documented as of this encounter Visit Diagnoses Not on filedocumented in this encounter Care Teams Plant Anatomy Teacher Relationship Specialty Start Date End Date Jj Tyson MD PCP - General 07/07/17 01/12/23 documented as of this encounter
--- OUTSIDE RECORDS SUMMARY | 2025-10-07 04:22 | XMS_ITS | Encounter Summary ---
Author Organization [facility] Address [address] [place] [id number] Phone Care Team Providers Care Chip Mixer Name Role Phone Jj Tyson MD Primary Care Provider Jw naik Encounter Details Date Type Department Care Team (Late st Contact Info) Description 07/13/2017 Conversion Encounter [facility] - [address] [address] Social History Tobacco Use Types Packs/Day Years [...] on filedocumented in this encounter Care Teams Chip Mixer Relationship Specialty Start Date End Date Jj Tyson MD PCP - General 07/07/17 01/12/23 documented as of this encounter
--- OUTSIDE RECORDS SUMMARY | 2025-10-07 04:22 | XMS_ITS | Clinical Summary ---
Author Organization [facility] Address [address] [place] [phone] Phone Care Team Providers Care Plant Senior Manager Name Role Phone Unavailable Primary Care Provider Unavailabl e Immunizations Immunization Administration Dates Next Due DTP 06/08/1994, 1,02/07/1990,12/13,1989 H1N1 10/21/2009 Hep A, ped/adol 07/04/2012 Hep B, ped/adol 07/10/2002,03/15/2002,01/18/2002 Hib (PRP-T) 04/01/1991 Influenza, injectable, trivalent 10/20/2008 MMR 04/18/1995,04/01/1991 Meningococcal Conj (Menactra) MCV4P 06/16/2006 OPV 06/08/1994, 1,1989,10/11 Td (adult) (MBL), 2 Lf tetan us toxoid, PF, adsorbed 02/08/2000 Tdap 07/23/2008 Unknown Vaccine 07/11/2012,07/04/2012 Family History Relation Name Status Comments Brother Alive Brother: Alive and well Father Alive Father: Alive a nd well Maternal Grandfather Materna l grandfather: Hyperlipidemia, Hypertension Maternal Grandmother Materna l grandmother: Hypertension Mother Mother: Cancer -breast Paternal Grandfather Paterna l grandfather: Lymphoma, Social History Tobacco Use Types Packs/Day Years Used Date Smoking Tobacco: Never Assessed Sex and Gender Information Value Date Recorded Sex Assigned at Not on file Legal Sex Male 4:40 PM EDT Gender Identity Not on file Sexual Orientation Not on file Last Filed Vital Signs Vital Sign Reading Time Taken Comments Blood Pressure 142/82 05/04/2010 12:00 AM EDT Pulse - - Temperature - - Respiratory Rate - - Oxygen Saturation - - Inhaled Oxygen Concentration - - Weight 86.4 kg (190 lb 8 oz) 05/04/2010 12:00 AM EDT Height 182.9 cm (6') 05/04/2010 12:00 AM EDT Body Mass Index 25.84 05/04/2010 12:00 AM EDT Plan of Treatment Health Maintenance Due Date Last Done Comments Varicella Vaccines (1 of 2 - 13+ 2-dose series) 2002 HPV Vaccines (1 - 3-dose SCDM series) 2016 DTaP,Tdap,and Td Vaccines (7 - Td or Tdap) 07/23/2018 07/23/2008, 02/08/2000, 06/08/1994, Additional history exists Influenza Vaccines (#1) 2025 10/20/2008 COVID-19 Vaccine (2024- season) 2025 HIB Vaccines Completed 04/01/1991 IPV Vaccines Completed 06/08/1994, 04/1991, 1989, Additional history exists MMR Vaccines Completed 04/18/1995, 04/01/1991 Hepatitis B Vaccines Completed 07/10/2002, 03/15/2002, 01/18/2002 Meningococcal Vaccine Completed 06/16/2006 Hepatitis A Vaccines Aged Out 07/04/2012 No long er eligible based on patient's age to complete this topic Men B Vaccine Aged Out No longer elig ible based on patient's age to complete this topic Pneumococcal Vaccine Aged Out No long er eligible based on patient's age to complete this topic
--- OUTSIDE RECORDS SUMMARY | 2025-10-07 04:22 | XMS_ITS | Patient Health Record ---
[facility] Organization [facility] Address [address] [place] [address] Care Team Providers Care Print Washer Name Role Phone Addie(inactive) Abram MARCUM Primary Care Provider U Omkar Gomez Jr Unavailable [phone] Reason For Referral No Information Problems Problem Type SNOMED Code ICD Code Onset Dates Problem Status W/U Status Risk Notes Problem Elevated liver enzymes level (710677483) Elevated liver function tests (790.6) Active confirmed Problem Abnormal liver ultrasound (793.3) Active confirmed Plan Of Treatment No Information Insurance Providers Payer Name Payer Address Payer Phone Subscriber Number Group Number Insured Name Patient Relationship to Insured Coverage Start Date Coverage End Date [facility] [address] [place] [phone] [id number] KELBY CHRIS Self - patient is the insured Medical (General) History Medical History History ICD Code Denies IA,DM,CVA,Lung disease,renal dise ase Surgical History Surgery Date(Month/Year) Broken nose
[2025-10-07 04:35] LABS: Alanine Aminotransferase 61 U/L (0-40); Albumin Level 4.8 g/dL (3.5-5.0); Alkaline Phosphatase 79 U/L (39-117); Anion Gap 14 (12-20); Aspartate Amino Transferase 77 U/L (5-37); Blood Urea Nitrogen 9 mg/dL (9-16); Calcium 9.4 mg/dL (8.4-10.2); Carbon Dioxide 23 mmol/L (22-29); Chloride 105 mmol/L (96-108); Creatinine Clr Calc Pharmacy 118.9; Estimated Glomerular Filt Rate > 60; Potassium 3.7 mmol/L (3.3-5.1); Sodium 138 mmol/L (135-145); Total Protein 7.0 g/dL (6.5-8.0)
[2025-10-07 04:41] LABS: Troponin-I High Sensitivity < 2.7 ng/L (<3.5-35.0)
[2025-10-07 05:36] VITALS: BP 123/84; PULSE 72; RESP 16; TEMP 36.6; O2SAT 97
[2025-10-07 06:10] VITALS: BP 123/84; PULSE 72; RESP 16; TEMP 36.6; O2SAT 97
== END 2025-10-07 06:15 | disposition home or self-care (01) ==
PROVIDERS: Emergency Provider Emergency Medicine; PCP Physician Assistant
DX: R10.9 Unspecified abdominal pain (principal); T78.19XA Other adverse food reactions, not elsewhere classified, initial encounter; T78.49XA Other allergy, initial encounter; X58.XXXA Exposure to other specified factors, initial encounter; R00.0 Tachycardia, unspecified; R19.7 Diarrhea, unspecified; R07.9 Chest pain, unspecified; R06.02 Shortness of breath
CPT/HCPCS: 36415; 71045; 80053; 84484; 85025; 93005; 99283; 99284

== ENCOUNTER → 2025-10-07 03:33 | Outpatient (BNV) | payer OTHER, SELFPAY | PROVIDERS: Emergency Provider Emergency Medicine; PCP Physician Assistant; Visit Provider Internal Medicine Cardiovascular Disease | DX: R00.0 Tachycardia, unspecified (principal) | CPT/HCPCS: 93010 ==

== ENCOUNTER → 2025-10-07 04:05 | Outpatient (BNV) | payer OTHER, SELFPAY | PROVIDERS: Emergency Provider Emergency Medicine; PCP Physician Assistant; Visit Provider General Practice | DX: R07.9 Chest pain, unspecified (principal) | CPT/HCPCS: 71045 ==

== ENCOUNTER 2025-11-03 09:05 | Outpatient (REF) | payer OTHER, SELFPAY ==
[2025-11-03 11:05] LABS: Appearance Urine Clear; Glucose Urine UA Negative (Negative); PH 6.0 (5.0-9.0); Specific Gravity - Urine 1.010 (1.005-1.025)
== END 2025-11-03 09:06 | disposition home or self-care (01) ==
LOC: HO.10HDL 09:05
PROVIDERS: Visit Provider Physician Assistant
DX: R73.9 Hyperglycemia, unspecified (principal); R30.0 Dysuria; R39.15 Urgency of urination
CPT/HCPCS: 36415; 81003; 83036

== ENCOUNTER 2025-11-05 07:58 | Outpatient (AMB) | payer OTHER, SELFPAY ==
--- NOTE | 2025-11-05 08:11 | A.OFFPC_ITS ---
Vital Signs 11/05/25 08:12 Height 6 ft 1 in Weight 217 lb 6 oz BMI 28.7 BP 120/84 Blood Pressure Location Lt brachial Position Sitting Pulse 89 Pulse Source Pulse Oximeter Temp 97.1 F Temp Source Temporal Artery Scan Pulse Oximetry (%) 98 Oxygen Delivery Method Room Air Intake Visit Reasons: annual exam Intake Note: Patient is here today for a physical. Rn Neurology Required: No Inspector Floor: Not Required per policy Accompanied by: Self / Same As Patient Allergies azithromycin (AZITHROMYCIN) Allergy (Intermediate, Verified 11/05/25 08:18) RASH/hives clindamycin Allergy (Intermediate, Verified 11/05/25 08:18) rash/hives levofloxacin (From LEVAQUIN) Allergy (Intermediate, Verified 11/05/25 08:18) RASH peanut Allergy (Intermediate, Verified 11/05/25 08:18) swollen lymph nodes scallops Allergy (Intermediate, Verified 11/05/25 08:18) swollen lymph nodes sesame seed Allergy (Intermediate, Verified 11/05/25 08:18) swollen lymph nodes Sulfa (Sulfonamide Antibiotics) (SULFA (SULFONAMIDE ANTIBIOTICS)) Allergy (Intermediate, Verified 11/05/25 08:18) rash/hives wheat Allergy (Intermediate, Verified 11/05/25 08:18) swollen lymph nodes Medication List - Last Reconciled 11/05/25 by Amauri Ma PA-C cholecalciferol (vitamin D3) 50 mcg PO DAILY dextroamphetamine-amphetamine 10 mg (Adderall) 10 mg PO BID 28 days epinephrine (EpiPen 2-Danis) 0.3 mg (0.3 mL) IM Q10M PRN lorazepam 0.5 mg PO DAILY PRN 14 days triamcinolone acetonide 0.1% 1 appl topical DAILY 30 days Tobacco use date assessed: 11/05/25 Dental Screening Dental Screen Date: 02/12/25 HPI annual exam HPI Details Patient is a 35-year-old male here today for routine annual physical. Patient has a past medical history significant for ADHD and generalized anxiety disorder multiple environmental allergies, and wheat intolerance. Intermittent Cervical lymphadenopathy: he patient reports a chronic issue with a single lymph node that swells up when he is eating. This has been occurring for approximately 10 years, and it is always the same lymph node. The swelling happens intermittently and randomly, sometimes with months between episodes, and there is no consistent food trigger, as it has occurred with foods like salad with homemade dressing. The swelling has never occurred spontaneously without eating. He notes a sensation of a lump in his throat on the same side when the swelling occurs. He denies any difficulty swallowing. Previous workup includes at least one or two ultrasounds of the node, and autoimmune testing has been done. The issue is causing him significant frustration. .. Wheat intolerance: Has completely discontinued weight out of his diet and now feels great. Also has done allergy testing in the past which noted peanut in sesame seed allergens. He would like to see an concrete laborer for further testing in recommendations on his allergies. .. :ADHD: Luis continues with the use of Adderall with good effect on his attention focus. Continues to work full-time job at it [employer]. .. Generalized anxiety disorder: Has generally been fairly well controlled. He reports over the last several months having some increase panic attack and anxious symptoms. Has been having to use his lorazepam a bit more. He will try to reestablish care with his mental health therapist to help him with his anxiety as well. Vaccines: Up-to-date with COVID vaccine, tetanus vaccine. Considering flu vaccine [facility] Medical History Leucopenia ELIANE (generalized anxiety disorder) ADHD (attention deficit hyperactivity disorder) Fever Surgical History Hx of colonoscopy History of nasal surgery Hx of elbow surgery Family History Mother Breast cancer Family history of thyroid problem Father No problems noted. Social History (Updated 11/05/25 @ 08:24 by Amauri Ma PA-C) Housing: House Are you a primary care management coordinator to a significant other at home: No Do you presently have visiting nurse or other home services: No Alcohol intake: current Alcohol intake frequency: holidays/special occasions only Alcohol type: wine Patient Tobacco Use Status: Never used Tobacco e-Cigarette/Vaping Use: Never Used Second Hand Smoke Exposure: No Substance Use Type: Marijuana service: No Current occupational status: employed Current occupation: [employer] Cognitive needs: No Hearing needs: No Vision needs: No Questionnaire PHQ-9 Over the last 2 weeks, how often have you been bothered by any of the following problems? 1. Little interest or pleasure in doing things: not at all 2. Feeling down, depressed, or hopeless: not at all 3. Trouble falling or staying asleep, or sleeping too much: not at all 4. Feeling tired or having little energy: not at all 5. Poor appetite or overeating: not at all 6. Feeling bad about yourself - or that you are a failure or have let yourself or your family down: not at all 7. Trouble concentrating on things, such as reading the newspaper or watching television: not at all 8. Moving or speaking so slowly that other people could have noticed. Or the opposite - being so fidgety or restless that you have been moving around a lot more than usual: not at all 9. Thoughts that you would be better off or of hurting yourself in some way: not at all Total score: 0 Depression Screening Interpretation: Negative Depression Screening Done: Yes Source: Developed by Drs. Barrie Callahan, Laurel Wilhelm, Arben Mallory and colleagues, with an educational nelson from [employer]. Thrive Questionnaire Date Thrive assessed: 02/12/25 I am a: Patient What is your living situation today?: I have a steady place to live Within the past 12 months, did the food you bought not last and you didn't have the money to get more?: Never true Within the past 12 months, did you worry whether your food would run out before you got money to buy more?: Never true Do you have trouble paying for medicines?: No Do you have trouble getting transportation to medical appointments?: No Do you have trouble paying your heating and electricity bill?: No Do you have trouble taking care of your child, family member or friend?: No Do you have trouble with day-to-day activities such as bathing, preparing meals, shopping, managing finances, etc.?: No Are you currently unemployed and looking for a job?: No Are you interested in more education?: No Please select the resources that you would like help with: None Currently or been in a relationship where the following occur: No concerns reported THRIVE Score: 0 AUDIT C Alcohol Use Questionnaire (AUDIT-C) 1. How often do you have a drink containing alcohol?: 2-4 times a month 2. How many drinks containing alcohol do you have on a typical day when you are drinking?: 1 or 2 3. How often do you have six or more drinks on one occasion?: Never Total Score: 2 ELIANE-7 AMB Questionnaire ELIANE-7 Date ELIANE - 7 assessed: 02/12/25 Feeling nervous, anxious, or on edge: 0 = Not at all Not being able to stop or control worryin = Not at all Worrying too much about different things: 0 = Not at all Trouble relaxin = Not at all Being so restless that it is hard to sit still: 0 = Not at all Becoming easily annoyed or irritable: 0 = Not at all Feeling afraid as if something awful might happen: 0 = Not at all Total ELIANE-7 score (0-4 normal; 5-9 mild; 10-14 moderate; 15-21 severe): 0 Source: Developed by Drs. Barrie Callahan, Laurel Wilhelm, Arben Mallory and colleagues, with an educational nelson from [employer]. Review of Systems Const Denies body aches, Denies chills, Denies excessive sweating, Denies fatigue, Denies fever(s) and Denies headache(s) Eyes Denies blurry vision ENT Denies dysphagia, Denies vertigo, Denies dizziness, Denies headache(s), Denies hearing loss and Denies tinnitus Card Denies chest pain, Denies chest pain with activity, Denies syncope, Denies irregular heart rhythm and Denies dyspnea Resp Denies chest congestion, Denies cough, Denies hemoptysis, Denies dyspnea and Denies wheezing GI Denies abdominal pain, Denies melena, Denies hematochezia, Denies coffee ground emesis, Denies dysphagia, Denies diarrhea, Denies nausea and Denies vomiting Denies difficulty urinating, Denies dysuria, Denies urinary frequency, Denies urinary hesitancy and Denies urinary urgency Musc Denies arthralgias, Denies limited range of motion, Denies muscle cramps and Denies muscle weakness Skin/Breast Denies rash and Denies skin ulcer Neuro Denies Abnormal speech present, Denies confusion, Denies vertigo, Denies d izziness, Denies syncope, Denies headache(s), Denies memory loss and Denies seizure-like activity Psych Denies anxiety, Denies confusion, Denies depression, Denies memory loss, Denies panic attacks and Denies paranoia Endo Denies excessive sweating, Denies fatigue, Denies flushing, Denies polydipsia and Denies polyuria Aller/Immun Denies wheezing Physical exam (Primary Care) Vital Signs: Last Vital Signs Temp 97.1 F 11/05/25 08:12 Pulse 89 11/05/25 08:12 BP 120/84 11/05/25 08:12 Pulse Ox 98 11/05/25 08:12 Oxygen Delivery Method Room Air 11/05/25 08:12 BMI result Body Mass Index 28.7 Tobacco/Smoking Status: Tobacco use Status Tobacco use date assessed 11/05/25 11/05/25 08:16 Patient Tobacco Use Status Never used Tobacco 11/05/25 08:24 e-Cigarette/Vaping Use Never Used 11/05/25 08:24 PHQ-9: PHQ-9 Score PHQ-9: Total score 0 11/05/25 08:25 Depression Screening Interpretation: Negative Thrive Assessment: Date of Thrive Assessment Date Thrive assessed 02/12/25 11/05/25 08:16 Currently or been in a relationship where the following occur: No concerns reported Const General: cooperative, comfortable, no acute distress, alert and awake; No confusion Orientation/consciousness: oriented to person, oriented to place, patient oriented x3 and No confusion HENMT Head: Yes normocephalic Ears: external ears normal and TM's normal bilaterally Face and sinus: No sinus tenderness Mouth: Normal oral and palatal mucosa present and tongue normal Teeth and gingiva: dentition normal and gingiva normal Throat: Yes posterior oropharynx normal, Yes tonsils normal and Yes uvula midline Eyes Conjunctivae: conjunctivae normal Sclerae: sclerae normal Pupils: Equal, round and reactive pupils present EOM: EOMs intact bilaterally Direct Ophthalmoscopy: No no photophobia Neck Neck: Yes no lymphadenopathy, No tender and Yes no JVD Thyroid: Thyroid normal Carotids: no bruits Chest Chest palpation & inspection: no tenderness Resp Effort & Inspection: normal respiratory effort, no audible wheezes, not labored and no stridor Auscultation: no crackles, no rales, no rhonchi and no wheezes Cardio Jugular venous distension: no JVD Rate: regular rate, not bradycardic and not tachycardic Rhythm: regular rhythm Bruits: no carotid bruits Peripheral pulses: Peripheral pulses 2+ throughout GI Inspection: Yes normal to inspection, No abdominal wall ecchymosis and No visible herniation Palpation (GI): Soft to palpation, nontender, no guarding, not rigid and No hepatosplenomegaly present Auscultation: normoactive bowel sounds General: Yes no CVA tenderness Back/Spine/Pelvis Back: no CVA tenderness and No back tenderness Cervical Spine: cervical ROM normal Thoracic/Lumbar Spine: thoracic and lumbar spine normal to inspection, straight leg raise negative bilaterally, No thoraco-lumbar ROM limited and No lumbar spinal tenderness Skin Lesions: no lesions Rashes: no rashes Wounds: no wounds Neuro General: oriented to person, oriented to place, patient oriented x3, CN's II-XI intact bilaterally and No confusion Cranial nerves: Yes Equal, round and reactive pupils present and Yes Normal accommodation reflex present Cognition (Neuro): normal cognition Speech: No Abnormal speech present Gait exam (Neuro): Normal gait present Motor exam (neuro): 5/5 motor strength present throughout Extrem Right upper extremity: full ROM; no cyanosis Left upper extremity: full ROM; no cyanosis Right lower extremity: no edema Left lower extremity: no edema Psych Appearance: grossly normal Mental Status: mental status grossly normal Affect: normal affect Attitude: cooperative Thought process: Normal thought process present Office Procedures Flu Questionnaire Does the patient have a severe egg allergy?: No Does the patient have severe life threatening allergies?: No Does the patient have a fever or illness today?: No Has the patient ever had Guillain-[place]le [place] Syndrome?: No Has the patient ever had any past reaction to a flu shot?: No Immunizations Fluarix [id number] (PF) 45 mcg (15 mcg x 3)/0.5 mL IM syringe Performing Provider: Amauri aM PA-C [facility] Administered by: OMAR Pope on 11/05/25 08:57 Dose Route Admin Location Dispensed Lot Number Expiration Date [facility] Software Support Representative 0.5 mL IM Right Deltoid 0.5 mL [id number] 05/26/26 [id number] [facility] V[facility] Given Date VIS Provided VIS Publication Date 11/05/25 Single Vaccine 24 Eligibility Eligibility Date Funding Source Not [facility] Eligible 11/05/25 Private Coding Diagnoses Annual physical exam Z00.00 Attention deficit hyperactivity disorder (ADHD), predominantly inattentive type F90.0 Attention deficit-hyperactivity disorder type: predominantly inattentive Elevated blood sugar R73.9 Wheat intolerance K90.41 ELIANE (generalized anxiety disorder) F41.1 Malar rash R21 Pharyngeal dysphagia R13.13 Dysphagia type: pharyngeal phase Cervical adenopathy R59.0 Elevated liver enzymes R74.8 Assessment & Plan Assessment & Plan (1) Annual physical exam: Code(s): Z00.00 - Encounter for general adult medical examination without abnormal findings Category: Medical Plan: As per HPI (2) ADHD: Code(s): F90.9 - Attention-deficit hyperactivity disorder, unspecified type Category: Medical Qualifiers: Attention deficit-hyperactivity disorder type: predominantly inattentive Qualified Code(s): F90.0 - Attention-deficit hyperactivity disorder, predominantly inattentive type Plan: Patient's ADHD seems to be well controlled, he is able to stay focused in in tentional in his job tasks with the use Adderall at current dose. (3) Elevated blood sugar: Code(s): R73.9 - Hyperglycemia, unspecified Category: Medical Plan: Will check an A1c to evaluate for prediabetes. He has had slightly elevated fasting blood sugars for quite some time now. He will work on lowering carbohydrates and sugar in his diet. (4) Wheat intolerance: Code(s): K90.41 - Non-celiac gluten sensitivity Category: Medical Plan: Continue dietary management, mainly focusing on avoiding gluten products with a gluten sensitivity background. Follow-up may include further assessment by a gastrointestinal specialist if lymph node swelling persists. (5) ELIANE (generalized anxiety disorder): Code(s): F41.1 - Generalized anxiety disorder Category: Medical (6) Malar rash: Code(s): R21 - Rash and other nonspecific skin eruption Category: Medical (7) Dysphagia: Code(s): R13.10 - Dysphagia, unspecified Category: Medical Qualifiers: Dysphagia type: pharyngeal phase Qualified Code(s): R13.13 - Dysphagia, pharyngeal phase (8) Cervical adenopathy: Code(s): R59.0 - Localized enlarged lymph nodes Category: Medical (9) Elevated liver enzymes: Code(s): R74.8 - Abnormal levels of other serum enzymes Category: Medical Orders: Orders [place] barium swallow Today R13.13 - Dysphagia, pharyngeal phase Liver Panel Today R74.8 - Abnormal levels of other serum enzymes Anti DNA DS Antibody Today R21 - Rash and other nonspecific skin eruption CRP High Sensitivity Today R21 - Rash and other nonspecific skin eruption Influenza 5062-2200 Immunization Today Z23 - Encounter for immunization Referrals Ear/Nose/Throat Referral R13.13 - Dysphagia, pharyngeal phase, R59.0 - Localized enlarged lymph nodes Medications: Refilled lorazepam 0.5 mg PO DAILY PRN 14 tabs 2RF anxiety 14 days F41.1 - Generalized anxiety disorder dextroamphetamine-amphetamine 10 mg (Adderall) 10 mg PO BID 56 tabs 0RF 28 days F90.9 - Attention-deficit hyperactivity disorder, unspecified type
[2025-11-05 08:12] VITALS: BP 120/84; PULSE 89; TEMP 36.2; O2SAT 98; BMI 28.7
--- OUTSIDE RECORDS SUMMARY | 2025-11-05 08:12 | XMS_ITS | Encounter Summary ---
Author Organization [facility] Address [address] [place] [id number] Phone Care Team Providers Care Purchasing Engineer Name Role Phone Jj Tyson MD Primary Care Provider Jw naik Encounter Details Date Type Department Care Team (Late st Contact Info) Description 07/13/2017 Conversion Encounter [facility] - [address] [address] Social History Tobacco Use Types Packs/Day Years [...] on filedocumented in this encounter Care Teams Purchasing Engineer Relationship Specialty Start Date End Date Jj Tyson MD PCP - General 07/07/17 01/12/23 documented as of this encounter
--- OUTSIDE RECORDS SUMMARY | 2025-11-05 08:12 | XMS_ITS | Clinical Summary ---
Author Organization [facility] Address [address] [place] [id number] Phone Care Team Providers Care Fisher Pot Name Role Phone Unavailable Primary Care Provider [...]
--- OUTSIDE RECORDS SUMMARY | 2025-11-05 08:13 | XMS_ITS | Encounter Summary ---
Author Organization [facility] Address [address] [place] [id number] Phone Care Team Providers Care Refining Still Operator Name Role Phone Jj Tyson MD Primary Care Provider Jw naik Encounter Details Date Type Department Care Team (Late st Contact Info) Description 07/18/2012 Documentation [facility] [address] [place] [address] Family Medicine, Physician [address] [place], [place] [id number] Social History Tobacco Use Types Packs/Day Years [...] on filedocumented in this encounter Care Teams Refining Still Operator Relationship Specialty Start Date End Date Jj Tyson MD PCP - General 07/07/17 01/12/23 documented as of this encounter
--- OUTSIDE RECORDS SUMMARY | 2025-11-05 08:13 | XMS_ITS | Patient Health Record ---
Author Organization [facility] Address [address] [place] [address] Care Team Providers Care Social Media Senior Associate Name Role Phone Addie(inactive) Abram MARCUM Primary Care Provider U Omkar Gomez Jr Unavailable Reason For Referral No Information Social History Social History Additional Details Category Social Info Options Details Miscellaneous: Marital status: Single Occupation: [employer] Problems Problem Type SNOMED Code ICD Code Onset Dates Problem Status W/U Status Risk Notes Problem Elevated liver enzymes level (955720191) Elevated liver function tests (790.6) Active confirmed Problem Abnormal liver ultrasound (793.3) Active confirmed Plan Of Treatment No Information Insurance Providers Payer Name Payer Address Payer Phone Subscriber Number Group Number Insured Name Patient Relationship to Insured Coverage Start Date Coverage End Date [facility] [address] [facility] [phone] [id number] KELBY CHRIS Self - patient is the insured Medical (General) History Medical History History ICD Code Denies VA,DM,CVA,Lung disease,renal dise ase Surgical History Surgery Date(Month/Year) Broken nose
== END 2025-11-05 08:59 | disposition home or self-care (01) ==
PROVIDERS: PCP Physician Assistant; Visit Provider Physician Assistant
DX: Z23 Encounter for immunization (principal)

== ENCOUNTER → 2025-11-05 07:58 | Outpatient (BNVA) | payer OTHER, SELFPAY | PROVIDERS: PCP Physician Assistant; Visit Provider Physician Assistant | DX: Z00.00 Encounter for general adult medical examination without abnormal findings (principal); F90.0 Attention-deficit hyperactivity disorder, predominantly inattentive type; R73.9 Hyperglycemia, unspecified; K90.41 Non-celiac gluten sensitivity; R59.0 Localized enlarged lymph nodes; F41.1 Generalized anxiety disorder; R21 Rash and other nonspecific skin eruption; R13.13 Dysphagia, pharyngeal phase; Z13.31 Encounter for screening for depression; Z13.39 Encounter for screening examination for other mental health and behavioral disorders; Z23 Encounter for immunization | CPT/HCPCS: 90471; 90656; 96127; 99395 ==